=== PATIENT | female | born 1935 | race Two or more races ===

== ENCOUNTER → 2016-06-10 | Outpatient (REF) | payer MEDICARE ==
[2016-06-10 17:36] LABS: BASO % 0.3 % (0.0-1.0); EOS # 0.1 K/mm3 (0.0-0.50); EOS % 1.2 % (0.0-3.0); LARGE UNSTAINED CELL # 0.1 K/mm3 (0.0-0.4); LYMPH # 1.2 K/mm3 (1.5-4.5); LYMPH % 17.8 % (24.0-44.0); MEAN CORPUSCULAR HEMOGLOBIN 27.9 pg (27.0-33.0); MEAN CORPUSCULAR HGB CONC 31.6 g/dl (32.0-36.5); MEAN CORPUSCULAR VOLUME 88.2 fl (80.0-96.0); MONO # 0.6 K/mm3 (0.0-0.8); MONO % 8.4 % (0.0-5.0); NEUTROPHILS # 4.6 K/mm3 (1.8-7.7); NEUTROPHILS % 70.3 % (36.0-66.0); PLATELET COUNT, AUTOMATED 221 k/mm3 (150-450); RED CELL DISTRIBUTION WIDTH 14.3 % (11.5-14.5); WHITE BLOOD COUNT 6.6 K/mm3 (4.0-10.0)
[2016-06-10 17:50] LABS: ALBUMIN 3.4 GM/DL (3.2-5.2); ALBUMIN/GLOBULIN RATIO 0.85 (1.00-1.93); ALKALINE PHOSPHATASE 84 U/L (45-117); ALT/SGPT 25 U/L (12-78); AMYLASE 36 U/L (25-115); ANION GAP 8 MEQ/L (8-16); AST/SGOT 22 U/L (15-37); BILIRUBIN,TOTAL 0.5 MG/DL (0.2-1.0); BLOOD UREA NITROGEN 17 MG/DL (7-18); CALCIUM LEVEL 9.5 MG/DL (8.8-10.2); CARBON DIOXIDE LEVEL 31 MEQ/L (21-32); CHLORIDE LEVEL 97 MEQ/L (98-107); CREATININE FOR GFR 0.88 MG/DL (0.55-1.02); GLOMERULAR FILTRATION RATE > 60.0 (>39); GLUCOSE, FASTING 151 MG/DL (83-110); POTASSIUM SERUM 4.3 MEQ/L (3.5-5.1); SODIUM LEVEL 136 MEQ/L (136-145); TOTAL PROTEIN 7.4 GM/DL (6.4-8.2)
== END ==
LOC: M SFHCCLAY 13:33
PROVIDERS: ATTEND Family Medicine
DX: R10.31 Right lower quadrant pain (principal)
CPT/HCPCS: 80053; 82150; 83690; 85025; G0463

== ENCOUNTER → 2016-08-05 | Outpatient (REF) | payer MEDICARE ==
[2016-08-05 18:51] LABS: ALBUMIN 3.4 GM/DL (3.2-5.2); ALBUMIN/GLOBULIN RATIO 0.87 (1.00-1.93); ALKALINE PHOSPHATASE 72 U/L (45-117); ALT/SGPT 36 U/L (12-78); ANION GAP 9 MEQ/L (8-16); AST/SGOT 23 U/L (15-37); BILIRUBIN,TOTAL 0.4 MG/DL (0.2-1.0); BLOOD UREA NITROGEN 16 MG/DL (7-18); CALCIUM LEVEL 9.2 MG/DL (8.8-10.2); CARBON DIOXIDE LEVEL 29 MEQ/L (21-32); CHLORIDE LEVEL 100 MEQ/L (98-107); CHOLESTEROL LEVEL 112 MG/DL (<200); CREATININE FOR GFR 0.96 MG/DL (0.55-1.02); GLOMERULAR FILTRATION RATE 59.8 (>39); GLUCOSE, FASTING 272 MG/DL (83-110); POTASSIUM SERUM 3.7 MEQ/L (3.5-5.1); SODIUM LEVEL 138 MEQ/L (136-145); TOTAL PROTEIN 7.3 GM/DL (6.4-8.2); TRIGLYCERIDES LEVEL 249 MG/DL (<150)
[2016-08-05 19:06] LABS: BASO % 0.4 % (0.0-1.0); EOS # 0.3 K/mm3 (0.0-0.50); LARGE UNSTAINED CELL # 0.1 K/mm3 (0.0-0.4); LARGE UNSTAINED CELL % 1.3 % (0.0-4.0); LYMPH # 1.1 K/mm3 (1.5-4.5); LYMPH % 18.1 % (24.0-44.0); MEAN CORPUSCULAR HEMOGLOBIN 28.8 pg (27.0-33.0); MEAN CORPUSCULAR HGB CONC 32.9 g/dl (32.0-36.5); MEAN CORPUSCULAR VOLUME 87.5 fl (80.0-96.0); MONO # 0.5 K/mm3 (0.0-0.8); MONO % 9.1 % (0.0-5.0); NEUTROPHILS # 3.6 K/mm3 (1.8-7.7); NEUTROPHILS % 66.1 % (36.0-66.0); PLATELET COUNT, AUTOMATED 164 k/mm3 (150-450); RED CELL DISTRIBUTION WIDTH 15.1 % (11.5-14.5); WHITE BLOOD COUNT 5.5 K/mm3 (4.0-10.0)
== END ==
LOC: M SFHCCLAY 09:52
PROVIDERS: ATTEND Family Medicine
DX: D50.9 Iron deficiency anemia, unspecified (principal); E11.29 Type 2 diabetes mellitus with other diabetic kidney complication; R93.2 Abnormal findings on diagnostic imaging of liver and biliary tract; K74.60 Unspecified cirrhosis of liver; E78.5 Hyperlipidemia, unspecified; E03.9 Hypothyroidism, unspecified; Z79.899 Other long term (current) drug therapy

== ENCOUNTER → 2016-12-24 | Outpatient (REF) | payer MEDICARE | LOC: M SFHCCLAY 08:28 | PROVIDERS: ATTEND Family Medicine | DX: E11.29 Type 2 diabetes mellitus with other diabetic kidney complication (principal); E03.9 Hypothyroidism, unspecified ==

== ENCOUNTER → 2017-03-23 | Outpatient (REF) | payer MEDICARE ==
[2017-03-23 19:14] LABS: CALCIUM LEVEL 9.1 MG/DL (8.8-10.2); CREATININE FOR GFR 0.98 MG/DL (0.55-1.02); GLOMERULAR FILTRATION RATE 58.3 (>39); POTASSIUM SERUM 4.1 MEQ/L (3.5-5.1)
== END ==
LOC: M SFHCCLAY 09:51
PROVIDERS: ATTEND Family Medicine
DX: E11.29 Type 2 diabetes mellitus with other diabetic kidney complication (principal); Z23 Encounter for immunization
CPT/HCPCS: 80048; 83036; 90662; G0008; G0463

== ENCOUNTER → 2017-06-04 | Outpatient (CLI) | payer MEDICARE | LOC: M CLY 11:43 | DX: J18.1 Lobar pneumonia, unspecified organism (principal) | CPT/HCPCS: 71046; G0463 ==

== ENCOUNTER → 2017-06-25 | Outpatient (REF) | payer MEDICARE ==
[2017-06-25 12:04] LABS: ALBUMIN 3.6 GM/DL (3.2-5.2); ALBUMIN/GLOBULIN RATIO 0.92 (1.00-1.93); ALKALINE PHOSPHATASE 53 U/L (45-117); ALT/SGPT 28 U/L (12-78); ANION GAP 7 MEQ/L (8-16); AST/SGOT 23 U/L (7-37); BILIRUBIN,TOTAL 0.4 MG/DL (0.2-1.0); BLOOD UREA NITROGEN 14 MG/DL (7-18); CALCIUM LEVEL 9.3 MG/DL (8.8-10.2); CARBON DIOXIDE LEVEL 32 MEQ/L (21-32); CHLORIDE LEVEL 95 MEQ/L (98-107); CHOLESTEROL LEVEL 89 MG/DL (<200); CHOLESTEROL RISK RATIO 2.069 (<5); CREATININE FOR GFR 0.78 MG/DL (0.55-1.30); GLOMERULAR FILTRATION RATE > 60.0 (>39); GLUCOSE, FASTING 123 MG/DL (70-100); HDL CHOLESTEROL 43 MG/DL (>40); LDL CHOLESTEROL 14.2 MG/DL (<100); NON-HDL-C 46 MG/DL; POTASSIUM SERUM 4.2 MEQ/L (3.5-5.1); SODIUM LEVEL 134 MEQ/L (136-145); TOTAL PROTEIN 7.5 GM/DL (6.4-8.2); TRIGLYCERIDES LEVEL 159 MG/DL (<150)
== END ==
LOC: M SFHCCLAY 08:49
DX: E11.29 Type 2 diabetes mellitus with other diabetic kidney complication (principal); E03.9 Hypothyroidism, unspecified
CPT/HCPCS: 84443

== ENCOUNTER → 2017-10-06 | Outpatient (REF) | payer MEDICARE ==
[2017-10-06 11:43] LABS: ESTIMATED AVERAGE GLUCOSE 206 MG/DL (60-110); HEMOGLOBIN A1c 8.8 %
[2017-10-06 11:50] LABS: ALBUMIN 3.3 GM/DL (3.2-5.2); ALBUMIN/GLOBULIN RATIO 0.79 (1.00-1.93); ALKALINE PHOSPHATASE 66 U/L (45-117); ALT/SGPT 27 U/L (12-78); ANION GAP 6 MEQ/L (8-16); AST/SGOT 28 U/L (7-37); BILIRUBIN,TOTAL 0.4 MG/DL (0.2-1.0); BLOOD UREA NITROGEN 17 MG/DL (7-18); CALCIUM LEVEL 9.1 MG/DL (8.8-10.2); CARBON DIOXIDE LEVEL 31 MEQ/L (21-32); CHLORIDE LEVEL 99 MEQ/L (98-107); CREATININE FOR GFR 1.08 MG/DL (0.55-1.30); GLUCOSE, FASTING 303 MG/DL (70-100); POTASSIUM SERUM 4.2 MEQ/L (3.5-5.1); SODIUM LEVEL 136 MEQ/L (136-145); TOTAL PROTEIN 7.5 GM/DL (6.4-8.2)
== END ==
LOC: M SFHCCLAY 07:43
DX: E11.29 Type 2 diabetes mellitus with other diabetic kidney complication (principal)
CPT/HCPCS: 80053

== ENCOUNTER → 2018-05-24 | Outpatient (REF) | payer MEDICARE ==
[2018-05-24 17:10] LABS: BASO % 0.3 % (0.0-1.0); EOS # 0.1 10^3/uL (0.0-0.50); EOS % 2.2 % (0.0-3.0); HEMATOCRIT 35.3 % (36.0-47.0); HEMOGLOBIN 11.2 g/dl (12.0-15.5); LYMPH # 1.2 10^3/uL (1.5-4.5); LYMPH % 19.6 % (24.0-44.0); MEAN CORPUSCULAR HEMOGLOBIN 27.2 pg (27.0-33.0); MEAN CORPUSCULAR HGB CONC 31.7 g/dl (32.0-36.5); MEAN CORPUSCULAR VOLUME 85.7 fl (80.0-96.0); MONO # 0.5 10^3/uL (0.0-0.8); MONO % 8.7 % (0.0-5.0); NEUTROPHILS # 4.1 10^3/uL (1.8-7.7); NEUTROPHILS % 68.9 % (36.0-66.0); PLATELET COUNT, AUTOMATED 184 10^3/uL (150-450); RED BLOOD COUNT 4.12 10^6/uL (4.00-5.40)
[2018-05-24 17:13] LABS: ALBUMIN 3.2 GM/DL (3.2-5.2); BILIRUBIN,TOTAL 0.4 MG/DL (0.2-1.0); CALCIUM LEVEL 9.1 MG/DL (8.8-10.2); CHOLESTEROL RISK RATIO 3.051 (<5); CREATININE FOR GFR 0.99 MG/DL (0.55-1.30); GLOMERULAR FILTRATION RATE 57.5 (>32); THYROID STIMULATING HORMONE 4.44 uIU/ML (0.358-3.740); TOTAL PROTEIN 7.6 GM/DL (6.4-8.2)
[2018-05-24 17:17] LABS: HEMOGLOBIN A1c 9.2 %
== END ==
LOC: M SFHCCLAY 09:35
PROVIDERS: ATTEND Family Medicine
DX: E11.29 Type 2 diabetes mellitus with other diabetic kidney complication (principal); E03.9 Hypothyroidism, unspecified; D50.9 Iron deficiency anemia, unspecified
CPT/HCPCS: 80053; 80061; 83036; 84443; 85025; G0463

== ENCOUNTER → 2018-09-17 | Outpatient (REF) | payer MEDICARE ==
[2018-09-17 18:27] LABS: ALBUMIN 3.4 GM/DL (3.2-5.2); BILIRUBIN,TOTAL 0.4 MG/DL (0.2-1.0); CALCIUM LEVEL 9.5 MG/DL (8.8-10.2); CREATININE FOR GFR 0.96 MG/DL (0.55-1.30); GLOMERULAR FILTRATION RATE 59.4 (>32); POTASSIUM SERUM 3.9 MEQ/L (3.5-5.1)
[2018-09-17 18:59] LABS: HEMOGLOBIN A1c 8.3 %
== END ==
LOC: M SFHCCLAY 10:45
PROVIDERS: ATTEND Family Medicine
DX: E11.29 Type 2 diabetes mellitus with other diabetic kidney complication (principal)
CPT/HCPCS: 80053; 83036; G0463

== ENCOUNTER → 2019-01-17 | Outpatient (REF) | payer MEDICARE ==
[2019-01-17 17:03] LABS: ALBUMIN 3.4 GM/DL (3.2-5.2); BILIRUBIN,TOTAL 0.6 MG/DL (0.2-1.0); CALCIUM LEVEL 9.4 MG/DL (8.8-10.2); CREATININE FOR GFR 0.97 MG/DL (0.55-1.30); GLOMERULAR FILTRATION RATE 58.7 (>32); POTASSIUM SERUM 3.9 MEQ/L (3.5-5.1); THYROID STIMULATING HORMONE 2.99 uIU/ML (0.358-3.740); TOTAL PROTEIN 7.4 GM/DL (6.4-8.2)
[2019-01-17 18:10] LABS: HEMOGLOBIN A1c 7.7 %
== END ==
LOC: M SFHCCLAY 10:43
PROVIDERS: ATTEND Family Medicine
DX: E11.29 Type 2 diabetes mellitus with other diabetic kidney complication (principal); E03.9 Hypothyroidism, unspecified
CPT/HCPCS: 80053; 83036; 84443; G0463

== ENCOUNTER → 2019-06-20 | Outpatient (REF) | payer MEDICARE ==
[2019-06-20 16:35] LABS: BASO % 0.4 % (0.0-1.0); EOS # 0.1 10^3/uL (0.0-0.5); EOS % 2.3 % (0.0-3.0); HEMATOCRIT 34.4 % (36.0-47.0); HEMOGLOBIN 10.9 g/dl (12.0-15.5); LYMPH # 0.9 10^3/uL (1.5-5.0); LYMPH % 16.6 % (24.0-44.0); MEAN CORPUSCULAR HEMOGLOBIN 27.8 pg (27.0-33.0); MEAN CORPUSCULAR HGB CONC 31.7 g/dl (32.0-36.5); MEAN CORPUSCULAR VOLUME 87.8 fl (80.0-96.0); MONO # 0.6 10^3/uL (0.0-0.8); NEUTROPHILS # 3.6 10^3/uL (1.5-8.5); NEUTROPHILS % 69.5 % (36.0-66.0); PLATELET COUNT, AUTOMATED 162 10^3/uL (150-450); RED BLOOD COUNT 3.92 10^6/uL (4.00-5.40); WHITE BLOOD COUNT 5.2 10^3/uL (4.0-10.0)
[2019-06-20 17:15] LABS: ALBUMIN 3.3 GM/DL (3.2-5.2); BILIRUBIN,TOTAL 0.4 MG/DL (0.2-1.0); CALCIUM LEVEL 9.2 MG/DL (8.8-10.2); CHOLESTEROL RISK RATIO 2.815 (<5); CREATININE FOR GFR 1.17 MG/DL (0.55-1.30); GLOMERULAR FILTRATION RATE 47.3 (>32); POTASSIUM SERUM 4.1 MEQ/L (3.5-5.1); THYROID STIMULATING HORMONE 2.78 uIU/ML (0.358-3.740); TOTAL PROTEIN 7.1 GM/DL (6.4-8.2)
== END ==
LOC: M SFHCCLAY 09:57
PROVIDERS: ATTEND Family Medicine
DX: E11.29 Type 2 diabetes mellitus with other diabetic kidney complication (principal); E03.9 Hypothyroidism, unspecified; E78.5 Hyperlipidemia, unspecified; D50.9 Iron deficiency anemia, unspecified
CPT/HCPCS: 80053; 80061; 83036; 83540; 84443; 85025; G0463

== ENCOUNTER → 2019-10-07 | Outpatient (REF) | payer MEDICARE ==
[2019-10-07 17:03] LABS: BASO % 0.3 % (0.0-1.0); EOS # 0.2 10^3/uL (0.0-0.5); EOS % 3.8 % (0.0-3.0); HEMOGLOBIN 11.1 g/dl (12.0-15.5); LYMPH # 1.5 10^3/uL (1.5-5.0); LYMPH % 25.2 % (24.0-44.0); MEAN CORPUSCULAR HEMOGLOBIN 27.7 pg (27.0-33.0); MEAN CORPUSCULAR HGB CONC 31.7 g/dl (32.0-36.5); MEAN CORPUSCULAR VOLUME 87.3 fl (80.0-96.0); MONO # 0.6 10^3/uL (0.0-0.8); MONO % 9.3 % (0.0-5.0); NEUTROPHILS # 3.7 10^3/uL (1.5-8.5); NEUTROPHILS % 61.1 % (36.0-66.0); PLATELET COUNT, AUTOMATED 161 10^3/uL (150-450); RED BLOOD COUNT 4.01 10^6/uL (4.00-5.40)
[2019-10-07 17:22] LABS: HEMOGLOBIN A1c 8.4 %
[2019-10-07 17:35] LABS: ALBUMIN 3.3 GM/DL (3.2-5.2); BILIRUBIN,TOTAL 0.6 MG/DL (0.2-1.0); CALCIUM LEVEL 9.2 MG/DL (8.8-10.2); CREATININE FOR GFR 1.09 MG/DL (0.55-1.30); GLOMERULAR FILTRATION RATE 51.2 (>32); POTASSIUM SERUM 3.9 MEQ/L (3.5-5.1); TOTAL PROTEIN 7.3 GM/DL (6.4-8.2)
== END ==
LOC: M SFHCCLAY 11:15
PROVIDERS: ATTEND Family Medicine
DX: E11.29 Type 2 diabetes mellitus with other diabetic kidney complication (principal); D50.9 Iron deficiency anemia, unspecified
CPT/HCPCS: 80053; 83036; 83540; 85025; G0463

== ENCOUNTER 2020-08-06 16:12 | Inpatient (IN) | payer MEDICARE ==
[~2020-08-06] VITALS: Ht 154.9 cm; Wt 82.7 kg
[2020-08-06 18:15] VITALS: BP 169/75
[2020-08-06] MEDS ORDERED: GLUCAGON INJ 1MG VIAL SC PRN (18:20)
[2020-08-06] MEDS ORDERED: GLUCOSE 4GM CHEW TABLET PO PRN (18:20)
[2020-08-06] MEDS ORDERED: DEXTROSE 50% 50 ML SYRINGE IV PRN (18:20)
[2020-08-06] MEDS ORDERED: LEVO150T7 PO (18:47)
[2020-08-06] MEDS ORDERED: LOSA100T50 PO (18:47)
[2020-08-06] MEDS ORDERED: GLIM4TAB5 PO (18:47)
[2020-08-06] MEDS ORDERED: CARV25TA PO (18:47)
[2020-08-06] MEDS ORDERED: TORS5TAB2 PO (18:47)
[2020-08-06] MEDS ORDERED: AMLO1TAB24 PO (18:47)
[2020-08-06] MEDS ORDERED: ASPI81CH10 PO (18:47)
[2020-08-06] MEDS ORDERED: METF-838 PO ×2 (18:47)
[2020-08-06] MEDS ORDERED: ALLO100T PO (18:47)
[2020-08-06] MEDS ORDERED: SIMV20TA22 PO (18:47)
[2020-08-06] MEDS ORDERED: SPIR-10 PO (18:47)
[2020-08-06 19:20] LABS: HEMOGLOBIN 9.1 g/dl (12.0-15.5); MEAN CORPUSCULAR HEMOGLOBIN 27.5 pg (27.0-33.0); MEAN CORPUSCULAR HGB CONC 32.5 g/dl (32.0-36.5); MEAN CORPUSCULAR VOLUME 84.6 fl (80.0-96.0); PLATELET COUNT, AUTOMATED 219 10^3/uL (150-450); RED BLOOD COUNT 3.31 10^6/uL (4.00-5.40); WHITE BLOOD COUNT 12.1 10^3/uL (4.0-10.0)
[2020-08-06 19:27] LABS: ALBUMIN 2.1 GM/DL (3.2-5.2); BILIRUBIN,TOTAL 2.8 MG/DL (0.2-1.0); CALCIUM LEVEL 8.7 MG/DL (8.8-10.2); CREATININE FOR GFR 1.21 MG/DL (0.55-1.30); GLOMERULAR FILTRATION RATE 45.4 (>32); TOTAL PROTEIN 6.1 GM/DL (6.4-8.2)
--- NOTE | 2020-08-06 19:45 | HPEPDOC ---
[facility] Medical History & Physical Date of Admission Aug 06, 2020 Date of Service: Aug 06, 2020 Primary Care Physician: Addison Kearns Attending Physician: JANIYA FRAZIER MD History and Physical TIME OF SERVICE: 950pm CHIEF COMPLAINT: weakness HISTORY OF PRESENT ILLNESS: This 84 yr old F had been having nausea and non bloody vomitus for about 7 days. These symptoms resolved, but her appetite has not improved, she feels like her abdomen is enlarged and full, despite usually having a good appetite. She has also been feeling weak, and has been having right mid 6/10 in severity non- radiating dull abdominal pain; she is not sure if the pain it is made worse by eating. She denies falling as a result of the weakness. She has been having diarrhea with 2 watery non-bloody bowel movements daily. She called an urgent care center to discuss her concerns and was told to go to the ER. She presented at [facility] where she was diagnosed with acute cholecystitis with stone or mass in the gallbladder fundus, transaminitis, and ALEXANDRA and UTI; the case was d/w and she was transferred here for a higher level of care. REVIEW OF SYSTEMS: 12-point review of systems negative except as listed in HPI PAST MEDICAL/ SURGICAL HISTORY: Hx of GIST CAD w stents x2 / DLP NIDDM w retinopathy and neuropathy Chronic HTN Gout Sigmoid diverticulosis Fatty liver Hypothyroidism Anemia Dextroconvex scoliosis Left hip prosthesis / Debility uses a walking aide Hysterectomy D&C SOCIAL HISTORY: She is a former smoker, doesnt drink or use recreational drugs, is single & doesnt have any children. FAMILY HISTORY: Parkinsons, DM, HTN ALLERGIES: Please see below. HOME MEDICATIONS: Please see below. PHYSICAL EXAMINATION: Vital Signs Date Time Temp Pulse Resp B/P (MAP) Pulse Ox O2 Delivery O2 Flow Rate FiO2 08/06/20 18:15 99.5 91 18 169/75 (106) 95 Room Air GENERAL APPEARANCE: well nourished and developed / NAD HEENT: EOMI / no scleral icterus CARDIOVASCULAR: RRR/NMRG / no LE edema LUNGS: CTAB on RA ABDOMEN: distended / tympanic/ hypoactive BS / soft / tender w palpation on the right / MUSCULOSKELETAL: ROMIx 4 INTEGUMENT: not flushed, pale, jaundice or diaphoretic NEUROLOGICAL: CN 2-12 grossly intact / speech not dysarthric PSYCHIATRIC: A&Ox / able to understand and follow all commands LABORATORY DATA: 08/06/20 18:49 Nucleated Red Blood Cells % (auto) 0.0, Anion Gap 5L, Glomerular Filtration Rate 45.4, Lactic Acid Level 1.1, Calcium Level 8.7L, Total Bilirubin 2.8H, Aspartate Amino Transf (AST/SGOT) 261H, Alanine Aminotransferase (ALT/SGPT) 194H, Alkaline Phosphatase 375H, Total Protein 6.1L, Albumin 2.1L, Albumin/Globulin Ratio 0.5L IMAGING: From [facility] 1 view xray showed bibasilar atelectasis From [facility] showed no free air, acute cholecystitis with stone vs mucosal mass in the gallbladder fundus, severe fatty infiltration of the liver. MICROBIOLOGY: UCx pending ASSESSMENT: Ms. Booker is an 84 yr old w a hx of GIST, CAD, NIDDM, HTN, Gout, Fatty liver, hypothyroidism, anemia, & debility who presented to [facility] w c/o abdominal distention, R sided abdominal pain, watery bowel movements, poor appetite, and weakness and was diagnosed with acute cholecystitis with stone or mass in the gallbladder fundus, transaminitis, and ALEXANDRA and UTI & transferred here for a higher level of care. PLAN: 1 Abdominal pain / fullness / anorexia possibly 2/2 acute cholecystis vs other cause TBD She may also have choledocholithiasis or a fundal mass Plan: CLD pending consult w / Vonda / f/u MRCP 2. Transaminitis In the 100s therefore may be due to fatty liver +/- cholecystitis Plan: trend LFTs & f/u MRCP 3 Loose stools w anemia Plan: f/u Iron studies and stool hem occult 4 UTI ? Plan: c/w abx / day time team may consider calling [facility] for UCx results 5 ALEXANDRA resolved She has CKD w nephropathy at baseline 6 CAD w stents x2 / DLP Plan: Aspirin, Carvedilol 7 NIDDM w retinopathy and neuropathy Plan: diabetic diet / f/u accuchecks / / hypoglycemia protocol / sliding scale insulin / hold oral anti-glycemic / f/u A1C (target A1C is 7.1 to 8.5% bc she is frail, elderly & has a decreased life expectancy) 8 Chronic HTN Plan: Amlodipine, Losartan, Spironolactone, Torsemide 9 Gout Plan: Allopurinol 11 Hypothyroidism Plan: Levothyroxine 12 Weakness She has a Left hip prosthesis / Debility uses a walking aide Plan: day time team may consider PT for early mobilization & to prevent deconditioning DVT px w SCDs Dispo: home after at least 2 midnights stay Home Medications Scheduled Allopurinol (Allopurinol) 100 Mg Tablet, 100 MG PO DAILY Amlodipine Besylate (Amlodipine Besylate) 5 Mg Tablet, 5 MG PO DAILY Aspirin (Aspirin) 81 Mg Tab.chew, 81 MG PO DAILY Carvedilol (Carvedilol) 25 Mg Tablet, 25 MG PO BID Glimepiride (Glimepiride) 4 Mg Tablet, 4 MG PO BID Levothyroxine Sodium (Levothyroxine Sodium) 150 Mcg Tablet, 150 MCG PO DAILY Losartan Potassium (Losartan Potassium) 100 Mg Tablet, 100 MG PO DAILY Metformin HCl (Metformin HCl ER) 500 Mg Tab.er.24h, 1,000 MG PO DAILY Metformin HCl (Metformin HCl ER) 500 Mg Tab.er.24h, 500 MG PO QHS Simvastatin (Simvastatin) 20 Mg Tablet, 20 MG PO QHS Spironolactone (Spironolactone) 25 Mg Tablet, 12.5 MG PO DAILY Torsemide (Torsemide) 5 Mg Tablet, 5 MG PO DAILY Allergies Coded Allergies: codeine (Verified Adverse Reaction, Mild, CONFUSION, 08/06/20) A-FIB/CHADSVASC A-FIB History Current/History of A-Fib/PAF?: No Current PO Anticoag Therapy: No JANIYA FRAZIER MD Aug 06, 2020 19:44
[2020-08-06 19:53] LABS: INR 1.5; PROTHROMBIN TIME 18.4 SECONDS (12.5-14.3)
[2020-08-06] MEDS: HumaLOG INSULIN (NovoLOG) PER UNIT SC SCH (21:00)
[2020-08-06 22:00] VITALS: BP 143/62
[2020-08-06] MEDS: PIPERACILLIN/TAZOBACTAM SOD 2.25 GM in D5W MINI-BAG PLUS 50 ML IV SCH (22:05)
[2020-08-06] MEDS ORDERED: ONDANSETRON 4 MG TAB PO PRN (22:45)
[2020-08-06] MEDS ORDERED: PILL CUTTER 1 EACH XX PRN (22:50)
[2020-08-06] MEDS: SIMVASTATIN 20 MG TAB PO SCH (23:57)
[2020-08-06] MEDS: CARVedilol 12.5 MG TAB PO SCH (23:57)
[2020-08-07] MEDS: PIPERACILLIN/TAZOBACTAM SOD 2.25 GM in D5W MINI-BAG PLUS 50 ML IV SCH ×4 (03:53→20:47)
[2020-08-07] MEDS: LEVOTHYROXINE 150MCG TABLET (0.15MG) PO SCH (05:43)
[2020-08-07 06:00] VITALS: BP 121/68
[2020-08-07 07:16] LABS: HEMATOCRIT 24.7 % (36.0-47.0); MEAN CORPUSCULAR HEMOGLOBIN 27.5 pg (27.0-33.0); MEAN CORPUSCULAR HGB CONC 32.4 g/dl (32.0-36.5); MEAN CORPUSCULAR VOLUME 84.9 fl (80.0-96.0); PLATELET COUNT, AUTOMATED 203 10^3/uL (150-450); RED BLOOD COUNT 2.91 10^6/uL (4.00-5.40); WHITE BLOOD COUNT 8.6 10^3/uL (4.0-10.0)
[2020-08-07 07:46] LABS: ALBUMIN 1.8 GM/DL (3.2-5.2); BILIRUBIN,TOTAL 2.7 MG/DL (0.2-1.0); CALCIUM LEVEL 8.7 MG/DL (8.8-10.2); CREATININE FOR GFR 1.28 MG/DL (0.55-1.30); GLOMERULAR FILTRATION RATE 42.5 (>32); MAGNESIUM LEVEL 1.8 MG/DL (1.8-2.4); POTASSIUM SERUM 3.9 MEQ/L (3.5-5.1); TOTAL PROTEIN 5.4 GM/DL (6.4-8.2)
[2020-08-07 07:47] LABS: PERCENT SATURATION 8.3 % (13.2-45.0)
[2020-08-07] MEDS: SPIRONOLACTONE 12.5MG PER 1/2 TABLET PO SCH (08:19)
[2020-08-07] MEDS: HumaLOG INSULIN (NovoLOG) PER UNIT SC SCH ×4 (08:19→20:48)
[2020-08-07] MEDS: amLODIPine 5 MG TAB PO SCH (08:20)
[2020-08-07] MEDS: allopurinoL 100 MG TAB PO SCH (08:20)
[2020-08-07] MEDS: TORSEMIDE 10 MG TABLET PO SCH (08:20)
[2020-08-07] MEDS: CARVedilol 12.5 MG TAB PO SCH ×2 (08:21→20:47)
[2020-08-07] MEDS: LOSARTAN 50MG TABLET PO SCH (08:21)
[2020-08-07] MEDS ORDERED: ASPIRIN 81 MG CHEW TABLET PO SCH (09:00)
[2020-08-07 09:08] LABS: HEMOGLOBIN A1c 8.8 %
--- NOTE | 2020-08-07 10:54 | IPN ---
PROGRESS NOTE DATE: 08/07/2020 SUBJECTIVE: Patient is seen and examined at the bedside. Chart has been reviewed. She denies any fever or chills overnight. No nausea or vomiting. She says her pain is much better today. She c/o epigastric and periumbilical pain, right upper quadrant, radiating to the back. Slight icterus, no jaundice. No diarrhea or constipation. OBJECTIVE: PHYSICAL EXAMINATION: Vital signs: Temperature 98.2, pulse 83, respiratory rate 17, blood pressure 121/68, 95% on room air. Generally: Patient is awake, alert, oriented to person, place, and time, answering questions appropriately. Slightly icteric, no jaundice. Lungs: Clear to auscultation. No wheezing, rales, or rhonchi. Heart: S1, S2, sinus rhythm. No murmurs, rubs, or gallops. Abdomen: Distended, positive bowel sounds times four quadrants, obese, tender in palpation right upper quadrant and epigastric area, tympanitic. Extremities: No cyanosis or clubbing. LABORATORY DATA: White count 8.6, hemoglobin 8, hematocrit 24, platelet count 203, sodium 137, potassium 3.9, chloride 104, bicarbonate 26, BUN 40, creatinine 1.28, glucose 120, iron of 13, TIBC 156, bilirubin 2.7, AST 136, ALT 141, alkaline phosphatase 348 ASSESSMENT AND PLAN: 84-year-old female with history of gastrointestinal stromal tumor (GIST), coronary artery disease (CAD), stent times two, dyslipidemia, non-insulin dependent diabetes with neuropathy and retinopathy, hypertension, gout, sigmoid diverticulosis, fatty liver, hypothyroidism, chronic anemia, left hip prosthesis with debility, walking with a walking aid, hysterectomy and dilatation and curettage (D and C), presented to the emergency room with complaints of weakness and abdominal pain in the right epigastric area, diarrhea, two bowel movements. Patient was found to have gallstones in the gallbladder fundus with acute cholecystitis, found to have acute kidney injury and a urinary tract infection (UTI), transferred to [facility] for higher level of care. IMPRESSION: 1. Acute cholecystitis. Rule out choledocholithiasis with elevated bilirubin levels. Patient is to have an MRCP. Currently on broad-spectrum IV Zosyn. General surgery consulted. If patient has choledocholithiasis will need an ERCP and a gastrointestinal (GI) consult. 2. Anemia of chronic disease. No acute red blood cell (RBC) needs. Does not have symptomatic anemia and has no overt gastrointestinal (GI) bleed. 3. Acute kidney injury with chronic kidney disease stage III with nephropathy, at baseline creatinine. 4. History of coronary artery disease (CAD), stents, on Coreg. Will hold the patient's aspirin for now for possible intervention either laparoscopic cholecystectomy or ERCP with sphincterotomy or possible stent placement depending on MRCP results. 5. Hypothyroidism, on chronic Synthroid. 6. Dyslipidemia, on chronic statin. MTDD
--- NOTE | 2020-08-07 13:28 | REP ---
INDICATION: transamintis. COMPARISON: Comparison CT study of the abdomen December 02, 2010.. TECHNIQUE: MRCP protocol. Coronal and axial T2 weighted scans are obtained. MRCP acquisition is acquired and maximum intensity projection images are generated. These are viewed in rotational format. Source coronal images are reviewed. FINDINGS: T2 weighted scans demonstrate a Azeem's lobe configuration to the liver. The liver is not felt to be enlarged. Spleen is not enlarged. The gallbladder however is dilated and quite thick walled consistent with cholecystitis. The intrahepatic bile ducts are not dilated. There is a 1.1 cm cyst in the pancreatic head which is anterior to the convergence of the common bile duct and the main pancreatic duct. The main pancreatic duct is unremarkable. The source coronal images show a small rounded load signal intensity filling defect in the lumen of the common bile duct approximately 2.6 cm above the ampulla. This filling defect measures 0.3 cm and may be a choledocholithiasis. No common bile duct stricture is seen. No pancreatic mass is observed. There appear to be 2 small cortical cysts of the left kidney and there is a distal duodenal diverticulum. There is 1 small sub cm cyst in the right kidney. IMPRESSION: 1. Dilated gallbladder with a irregularly thickened wall consistent with cholecystitis, chronic versus acute. 2. No biliary ductal dilation is seen. 3. There is a 3 mm filling defect in the common bile duct suggestive of choledocholithiasis. 4. There is a 1.1 cm cyst in the head of the pancreas anterior to the pancreatic segment of the common bile duct and main pancreatic duct. 5. There are small bilateral cortical kidney cysts. <Electronically signed by Sohail Smith > 08/07/20 [id number]
[2020-08-07 14:00] VITALS: BP 105/47
--- NOTE | 2020-08-07 19:10 | CR.PDOC ---
General Surgery Consultation Date of Consultation 08/07/20 History and Physical CONSULT REPORT FOR: hospitalist service REASON FOR CONSULTATION: abdominal pain, cholecystitis HISTORY OF PRESENT ILLNESS: PAST MEDICAL HISTORY: 1. . PAST SURGICAL HISTORY: INCLUDES: 1. . PREVIOUS ANESTHESIA REACTIONS: ALLERGIES: Please see below. FAMILY HISTORY: . HOME MEDICATIONS: Please see below. REVIEW OF SYSTEMS: GENERAL: [Denies chills, reports weight gain, reports feeling febrile yesterday]. HEENT: [Denies blurred vision and double vision. Denies ear symptoms. Denies hoarseness]. NECK: Denies any neck pain]. CARDIOVASCULAR: [Denies chest pain and palpitations]. MUSCULOSKELETAL: [Denies arthralgias, back pain and thrombophlebitis]. SKIN: [Denies rash]. NEUROLOGIC: [Denies headache, stroke and transient ischemic attack]. PSYCHIATRIC: [Denies anxiety and depression]. ENDOCRINE: [Denies thyroid disease]. HEMATOLOGY/ONCOLOGY: [Denies bleeding or clotting disorder]. HEART: [Denies any chest pains, palpitations, paroxysmal dyspnea, orthopnea]. PULMONARY: [Denies chronic cough, dyspnea and wheezing]. GASTROINTESTINAL: [Denies rectal bleeding, family history of colon cancer, constipation, diarrhea, dysphagia, heartburn and jaundice]. GENITOURINARY: [Denies dysuria, frequency, hematuria and nocturia]. ENDOCRINE: [Denies polydipsia, polyphagia, polyuria, heat or cold intolerance]. INFECTIOUS: [Denies any recent upper respiratory tract infection, UTI, need for use of antibiotics]. NUTRITION: [Reports good appetite]. PHYSICAL EXAMINATION: VITALS SIGNS: Please see below. GENERAL APPEARANCE:[Patient seen, laying in bed, awake, alert, and oriented. Comfortable, in no acute distress]. SKIN: [Warm and moist]. HEENT: [Normocephalic, atraumatic. [place]et palpebral conjunctiva, anicteric sclerae. Lips and mucosa appear moist]. NECK: [Supple, no thyromegaly. No obvious jugular venous distention]. LUNGS: [Clear to auscultation bilaterally. No wheezing appreciated]. HEART: [No chest wall abnormalities. Regular rate and rhythm with no murmurs appreciated]. ABDOMEN: Abdomen is , soft, . [No hepatosplenomegaly. No umbilical or groin herniations, nondistended. No noticeable rebound or guarding. No grimacing with palpation. No rebound tenderness. No masses appreciated]. EXTREMITIES: [Extremities have no deformities. No edema identified] ANCILLARIES: . LABORATORY DATA: Please see below. IMAGING STUDIES: . IMPRESSION AND PLAN: . Vital Signs Vital Signs Date Time Temp Pulse Resp B/P (MAP) Pulse Ox O2 Delivery O2 Flow Rate FiO2 08/07/20 14:00 97.8 82 15 105/47 (66) 98 Room Air I&Os I&O- Last 24 Hours up to 6 AM 08/07/20 06:00 Intake Total 650 ml Balance 650 ml Laboratory Data Labs 24H Laboratory Tests 2 08/06/20 21:16: Bedside Glucose (Misc Panel) 140H 08/07/20 06:33: Nucleated Red Blood Cells % (auto) 0.0, Anion Gap 7L, Glomerular Filtration Rate 42.5, Estimated Mean Plasma Glucose 206H, Hemoglobin A1c 8.8, Calcium Level 8.7L, Magnesium Level 1.8, Iron Level 13L, Total Iron Binding Capacity 156L, Transferrin % Saturation 8.3L, Ferritin 297H, Total Bilirubin 2.7H, Aspartate Amino Transf (AST/SGOT) 136H, Alanine Aminotransferase (ALT/SGPT) 141H, Alkaline Phosphatase 348H, Total Protein 5.4L, Albumin 1.8L, Albumin/Globulin Ratio 0.5L, Vitamin B12 Level 218L, Folate 20.0 08/07/20 07:52: Bedside Glucose (Misc Panel) 149H 08/07/20 12:12: Bedside Glucose (Misc Panel) 153H 08/07/20 16:30: Bedside Glucose (Misc Panel) 127H CBC/BMP Laboratory Tests 08/07/20 06:33 Microbiology Microbiology 08/06/20 Blood Culture - Preliminary, Resulted No growth after 24 hours . All specim... Home Medications Scheduled Allopurinol (Allopurinol) 100 Mg Tablet, 100 MG PO DAILY, (Reported) Amlodipine Besylate (Amlodipine Besylate) 5 Mg Tablet, 5 MG PO DAILY, (Reported) Aspirin (Aspirin) 81 Mg Tab.chew, 81 MG PO DAILY, (Reported) Carvedilol (Carvedilol) 25 Mg Tablet, 25 MG PO BID, (Reported) Glimepiride (Glimepiride) 4 Mg Tablet, 4 MG PO BID, (Reported) Levothyroxine Sodium (Levothyroxine Sodium) 150 Mcg Tablet, 150 MCG PO DAILY, (Reported) Losartan Potassium (Losartan Potassium) 100 Mg Tablet, 100 MG PO DAILY, (Reported) Metformin HCl (Metformin HCl ER) 500 Mg Tab.er.24h, 1,000 MG PO DAILY, (Reported) Metformin HCl (Metformin HCl ER) 500 Mg Tab.er.24h, 500 MG PO QHS, (Reported) Simvastatin (Simvastatin) 20 Mg Tablet, 20 MG PO QHS, (Reported) Spironolactone (Spironolactone) 25 Mg Tablet, 12.5 MG PO DAILY, (Reported) Torsemide (Torsemide) 5 Mg Tablet, 5 MG PO DAILY, (Reported) Allergies Coded Allergies: codeine (Verified Adverse Reaction, Mild, CONFUSION, 08/06/20) LALO JACKSON MD Aug 07, 2020 19:10
[2020-08-07] MEDS: SIMVASTATIN 20 MG TAB PO SCH (20:47)
[2020-08-07 22:00] VITALS: BP 109/47
[2020-08-08] MEDS: PIPERACILLIN/TAZOBACTAM SOD 2.25 GM in D5W MINI-BAG PLUS 50 ML IV SCH ×4 (03:40→20:26)
[2020-08-08 06:00] VITALS: BP 116/47
[2020-08-08] MEDS: LEVOTHYROXINE 150MCG TABLET (0.15MG) PO SCH (06:05)
[2020-08-08 06:53] LABS: HEMATOCRIT 23.2 % (36.0-47.0); HEMOGLOBIN 7.5 g/dl (12.0-15.5); MEAN CORPUSCULAR HGB CONC 32.3 g/dl (32.0-36.5); MEAN CORPUSCULAR VOLUME 83.5 fl (80.0-96.0); PLATELET COUNT, AUTOMATED 219 10^3/uL (150-450); RED BLOOD COUNT 2.78 10^6/uL (4.00-5.40); WHITE BLOOD COUNT 11.5 10^3/uL (4.0-10.0)
[2020-08-08 07:22] LABS: ALBUMIN 1.7 GM/DL (3.2-5.2); BILIRUBIN,TOTAL 3.4 MG/DL (0.2-1.0); CALCIUM LEVEL 8.1 MG/DL (8.8-10.2); CREATININE FOR GFR 1.61 MG/DL (0.55-1.30); GLOMERULAR FILTRATION RATE 32.6 (>32); POTASSIUM SERUM 3.6 MEQ/L (3.5-5.1); TOTAL PROTEIN 5.2 GM/DL (6.4-8.2)
[2020-08-08] MEDS: HumaLOG INSULIN (NovoLOG) PER UNIT SC SCH ×4 (07:30→21:00)
[2020-08-08] MEDS: TORSEMIDE 10 MG TABLET PO SCH (09:46)
[2020-08-08] MEDS: SPIRONOLACTONE 12.5MG PER 1/2 TABLET PO SCH (09:46)
[2020-08-08] MEDS: CARVedilol 12.5 MG TAB PO SCH ×2 (09:47→20:29)
[2020-08-08] MEDS: LOSARTAN 50MG TABLET PO SCH (09:47)
[2020-08-08] MEDS: allopurinoL 100 MG TAB PO SCH (09:47)
[2020-08-08] MEDS: amLODIPine 5 MG TAB PO SCH (09:47)
[2020-08-08] MEDS ORDERED: NS 1,000 ML IV ONE (11:00)
--- NOTE | 2020-08-08 11:04 | IPNPDOC ---
Date Seen The patient was seen on 08/08/20. Progress Note please have manager community outreach call [employer] at [phone] to stat transcribed progress note by Dr. Littlejohn if needed urgently. VS, I&O, 24H, Fishbone Vital Signs/I&O Vital Signs Date Time Temp Pulse Resp B/P (MAP) Pulse Ox O2 Delivery O2 Flow Rate FiO2 08/08/20 09:47 116/52 08/08/20 09:47 68 08/08/20 06:00 97.8 20 95 Room Air I&O- Last 24 Hours up to 6 AM 08/08/20 06:00 Intake Total 1450 ml Output Total 600 ml Balance 850 ml Laboratory Data 24H LABS Laboratory Tests 2 08/07/20 12:12: Bedside Glucose (Misc Panel) 153H 08/07/20 16:30: Bedside Glucose (Misc Panel) 127H 08/07/20 20:26: Bedside Glucose (Misc Panel) 127H 08/08/20 06:35: Nucleated Red Blood Cells % (auto) 0.0, Anion Gap 9, Glomerular Filtration Rate 32.6, Calcium Level 8.1L, Total Bilirubin 3.4H, Aspartate Amino Transf (AST/SGOT) 131H, Alanine Aminotransferase (ALT/SGPT) 131H, Alkaline Phosphatase 417H, Total Protein 5.2L, Albumin 1.7L, Albumin/Globulin Ratio 0.5L CBC/BMP Laboratory Tests 08/08/20 06:35 Microbiology Microbiology 08/06/20 Blood Culture - Preliminary, Resulted No growth after 24 hours . All specim... WESTON LITTLEJOHN MD Aug 08, 2020 11:04
[2020-08-08 11:42] LABS: HEMATOCRIT 25.1 % (36.0-47.0); HEMOGLOBIN 8.2 g/dl (12.0-15.5)
--- NOTE | 2020-08-08 11:42 | IPN ---
PROGRESS NOTE DATE: 08/08/2020 SUBJECTIVE: The patient has no fevers or chills overnight. Complains though of feeling very thirsty with dry lips. No nausea or vomiting. No abdominal pain this morning. No other issues overnight. MRCP showed dilated common bile duct. The patient has been NPO for ERCP with Dr. Cowan this morning. No other issues overnight per nursing. OBJECTIVE: PHYSICAL EXAM: VITAL SIGNS: Temperature 97.8, pulse 68, respiratory rate 20, blood pressure 116/52, 95% on room air. GENERAL: Generally awake, alert and oriented to person, place, and time. Answering questions appropriately without conversational dyspnea. HEENT: The patient has no icterus or jaundice. LUNGS: Lungs are clear to auscultation, no wheezing, rales or rhonchi. Air entry is equal, no adventitious breath sounds. HEART: S1, S2 sinus rhythm. No murmurs, rubs or gallops. ABDOMEN: Abdomen is soft, distended, obese, positive bowel sounds times four quadrants. The patient has slight epigastric right upper quadrant tenderness. EXTREMITIES: no cyanosis, clubbing, or pitting edema. LABORATORY DATA: White count 11.5, hemoglobin 7.5, hematocrit 23, platelet count 219. Sodium 139, potassium 3.6, chloride 106, bicarb 24, BUN 43, creatinine 1.61, glucose of 115. T bilirubin 3.4, direct bilirubin 131, AST 131, ALT 131, alkaline phosphatase 417, albumin of 1.7. ASSESSMENT AND PLAN: This is an 84-year-old female with history of gastrointestinal stromal tumor, coronary artery disease, stent times two, non-insulin dependent diabetes with neuropathy, retinopathy, dyslipidemia, hypertension, gout, hypothyroidism, fatty liver, sigmoid diverticulosis, chronic anemia, left hip prosthesis, debility, walking with a walking aid, hysterectomy, D&C, presented to the Emergency Room with complaints of weakness, abdominal pain right upper quadrant and diarrhea. The patient was found to have acute cholecystitis and [id number]-[id number] kidney injury transferred to [facility] for higher level of care. 1. Acute cholecystitis/choledocholithiasis with possible acute cholangitis. 2. Anemia of chronic disease with possible hemodilutional component. No acute overt GI bleed. 3. Acute kidney injury on chronic kidney disease stage III with nephropathy most likely due to NPO status, dehydration, and cholecystitis. 4. History of coronary artery disease. 5. Hypothyroidism. 6. Dyslipidemia due to NPO status. The patient's torsemide and Spironolactone have been discontinued. She will be given normal saline while NPO x1 liter. 7. Hyperglycemic protocol. NPO status for ERCP today with Dr. Lamonte Cowan. Continue with IV antibiotics to be renally dosed by pharmacy. Laparoscopic cholecystectomy on Thursday per Dr. Ochoa. 8. Hemodilutional anemia. Recheck hemoglobin and hematocrit and transfuse as needed. 9. DVT prophylaxis with compression stockings. MTDD
[2020-08-08 14:00] VITALS: BP 114/55
[2020-08-08] MEDS ORDERED: ISOVUE-300 61% 50ML VIAL As Ordered ONE ×2 (16:12→16:13)
[2020-08-08] MEDS ORDERED: PHENYLephrine 500MCG 5ML (100MCG/ML) SYRINGE As Ordered ONE (16:29)
[2020-08-08] MEDS ORDERED: fentaNYL 100 MCG/2 ML INJECTION (J3010) As Ordered ONE (16:29)
[2020-08-08] MEDS ORDERED: ePHEDrine SULFATE 25 MG/5 ML(5MG/ML) SYRINGE As Ordered ONE (16:29)
[2020-08-08] MEDS ORDERED: propofoL 200 MG/20 ML VIAL As Ordered ONE (16:30)
[2020-08-08] MEDS ORDERED: LIDOCAINE 2% 100MG/5ML SDV (FOR ANES.) As Ordered ONE (16:30)
[2020-08-08] MEDS ORDERED: SUCCINYLCHOLINE 100 MG/5 ML SYRINGE (J0330) As Ordered ONE (16:31)
[2020-08-08] MEDS ORDERED: ROCURONIUM BROMIDE 50 MG/5 ML VIAL As Ordered ONE (16:53)
[2020-08-08] MEDS ORDERED: dexameTHASONE 4 MG/ML 1ML VIAL (J1100 PER 1MG) As Ordered ONE (17:10)
[2020-08-08] MEDS ORDERED: ONDANSETRON 4MG/2ML VIAL As Ordered ONE (17:10)
[2020-08-08] MEDS ORDERED: SUGAMMADEX SODIUM 500 MG/5 ML VIAL (BRIDION) As Ordered ONE (17:22)
--- NOTE | 2020-08-08 17:45 | ROOR ---
Patient Name: Stephanie Booker Procedure Date: 08/08/2020 4:19 PM Date of : 1935 Age: 84 Room: Main OR Gender: Female Note Status: Finalized Procedure: ERCP Indications: Evaluation and possible treatment of bile duct stone(s), Jaundice, Elevated liver enzymes Providers: Lamonte COWAN MD Referring MD: 2. Inpatient 2. Inpatient, CONY HUGHES DO Requesting Provider: Medicines: General Anesthesia Complications: No immediate complications. Procedure: Pre-Anesthesia Assessment: - The heart rate, respiratory rate, oxygen saturations, blood pressure, adequacy of pulmonary ventilation, and response to care were monitored throughout the procedure. The Duodenoscope was introduced through the mouth, and advanced to the duodenum and used to inject contrast into the bile duct. Findings: The turning sander tender film was normal. The esophagus was successfully intubated under direct vision. The scope was advanced to a normal major papilla in the descending duodenum without detailed examination of the pharynx, larynx and associated structures, and upper GI tract. The upper GI tract was grossly normal. A wire was passed into the biliary tree. The bile duct was then deeply cannulated over the guidewire. Contrast was injected. I personally interpreted the bile duct images. Ductal flow of contrast was adequate. Image quality was adequate. Contrast extended to the main bile duct. Opacification of the entire biliary tree except for the gallbladder was successful. The maximum diameter of the ducts was 8 mm. The lower third of the main bile duct contained a possible filling defect(s) related to minor sludge or a small mucosal fold. A 7 mm biliary sphincterotomy was made with a traction (standard) sphincterotome using ERBE electrocautery. There was no post-sphincterotomy bleeding. To discover objects, the biliary tree was swept with a 9 mm balloon starting at the bifurcation. Nothing was found. Impression: - A filling defect was suggested on the initial cholangiogram-sludge vs mucosal fold. - A biliary sphincterotomy was performed. - The biliary tree was swept and nothing was found. Recommendation: - I suspect the 3 mm stone seen on previous MRCP has already spontaneously passed. - Observe patient's clinical course. - Surgical consultation for consideration of cholecystectomy. Procedure Code(s): --- Professional --- 68403, Endoscopic retrograde cholangiopancreatography (ERCP); with sphincterotomy/papillotomy Diagnosis Code(s): --- Professional --- R93.2, Abnormal findings on diagnostic imaging of liver and biliary tract R74.8, Abnormal levels of other serum enzymes R17, Unspecified jaundice K80.50, Calculus of bile duct without cholangitis or cholecystitis without obstruction CPT copyright 2019 [employer]. All rights reserved. The codes documented in this report are preliminary and upon boat cleaner review may be revised to meet current compliance requirements. Lamonte Cowan MD Lamonte COWAN MD 08/08/2020 5:45:21 PM Electronically signed by Lamonte COWAN MD Number of Addenda: 0 Note Initiated On: 08/08/2020 4:19 PM Estimated Blood Loss: Estimated blood loss: none.
[2020-08-08] MEDS ORDERED: ONDANSETRON 4MG/2ML VIAL IV PRN (17:55)
[2020-08-08] MEDS ORDERED: fentaNYL 100 MCG/2 ML INJECTION (J3010) IV PRN (17:55)
[2020-08-08] MEDS ORDERED: oxyCODONE 5MG TAB PO PRN (17:55)
[2020-08-08] MEDS ORDERED: LR 1,000 ML IV SCH (17:55)
[2020-08-08 20:11] LABS: HEMATOCRIT 25.5 % (36.0-47.0); HEMOGLOBIN 8.4 g/dl (12.0-15.5)
[2020-08-08] MEDS: SIMVASTATIN 20 MG TAB PO SCH (20:27)
[2020-08-08 20:38] LABS: CALCIUM LEVEL 8.6 MG/DL (8.8-10.2); CREATININE FOR GFR 1.6 MG/DL (0.55-1.30); GLOMERULAR FILTRATION RATE 32.9 (>32); POTASSIUM SERUM 3.8 MEQ/L (3.5-5.1)
[2020-08-08 22:00] VITALS: BP 123/91
[2020-08-09] MEDS: PIPERACILLIN/TAZOBACTAM SOD 2.25 GM in D5W MINI-BAG PLUS 50 ML IV SCH ×4 (02:55→21:19)
[2020-08-09 06:00] VITALS: BP 101/63
[2020-08-09] MEDS: LEVOTHYROXINE 150MCG TABLET (0.15MG) PO SCH (06:35)
[2020-08-09 06:48] LABS: HEMATOCRIT 24.6 % (36.0-47.0); HEMOGLOBIN 7.9 g/dl (12.0-15.5); MEAN CORPUSCULAR HEMOGLOBIN 27.5 pg (27.0-33.0); MEAN CORPUSCULAR HGB CONC 32.1 g/dl (32.0-36.5); MEAN CORPUSCULAR VOLUME 85.7 fl (80.0-96.0); PLATELET COUNT, AUTOMATED 256 10^3/uL (150-450); RED BLOOD COUNT 2.87 10^6/uL (4.00-5.40); WHITE BLOOD COUNT 17.7 10^3/uL (4.0-10.0)
[2020-08-09 07:16] LABS: ALBUMIN 1.6 GM/DL (3.2-5.2); BILIRUBIN,TOTAL 2.5 MG/DL (0.2-1.0); CALCIUM LEVEL 8.1 MG/DL (8.8-10.2); CREATININE FOR GFR 1.63 MG/DL (0.55-1.30); GLOMERULAR FILTRATION RATE 32.2 (>32)
--- NOTE | 2020-08-09 08:27 | REP ---
INDICATION: CHOLECYSTITIS. COMPARISON: MRCP 08/07/2020 TECHNIQUE: Fifty-one images from C-arm fluoroscopy provided to Dr. Cowan of the gastroenterology division. FINDINGS: The duodenum scope projects with the probe into the common bile duct passage of wire through the common bile duct into the right hepatic duct. Contrast injection is performed with passage of the balloon catheter over the wire with multiple views with the balloon inflated and pulled through the duct obtained. Post procedure injection shows common duct without any filling defects and smooth contours. The visualized portions of intrahepatic ducts are unremarkable. IMPRESSION: Status post ERCP with balloon catheter placed into the common duct and pull-through, no filling defects seen after completion of the procedure on reinjection. Fluoroscopy time: 4 minutes 54.4 seconds. <Electronically signed by Chencho Witt > 08/09/20 [id number]
[2020-08-09] MEDS: CARVedilol 12.5 MG TAB PO SCH (09:00)
[2020-08-09] MEDS: LOSARTAN 50MG TABLET PO SCH (09:00)
[2020-08-09] MEDS: amLODIPine 5 MG TAB PO SCH (09:00)
[2020-08-09] MEDS: HumaLOG INSULIN (NovoLOG) PER UNIT SC SCH ×4 (09:44→20:27)
[2020-08-09] MEDS: allopurinoL 100 MG TAB PO SCH (09:46)
--- NOTE | 2020-08-09 10:24 | IPN ---
PROGRESS NOTE DATE: 08/09/2020 SUBJECTIVE: The patient complains of some nausea, increasing some abdominal distention this morning and a lot of gas. The patient is stable on her current liquid diet, eating jello at the bedside, no fever or chills overnight. Still on IV antibiotics. ERCP yesterday showing a filling defect suggested on initial cholangiogram, sludge versus mucosal fold, status post biliary sphincterotomy. When the biliary tree was swept nothing was found. Per aircraft motor mechanic, Dr. Cowan, there was probably a 3 mm stone previously seen on the MRCP which has been continually sweep passed. Recommendations are for cholecystectomy. OBJECTIVE: VITAL SIGNS: Temperature 98.2, pulse 75, respiratory rate 18, blood pressure 101/63, 95% on room air. GENERAL: Awake, alert and oriented x3, anicteric. No jaundice or icterus. Patient has no use of respiratory accessory muscles. She is able to speak in full sentences. NECK: No JVD, thyromegaly, or cervical lymphadenopathy. Moist mucous membranes. LUNGS: Clear to auscultation. No wheezing, rales or rhonchi. HEART: S1 and S2, sinus rhythm. ABDOMEN: Obese, soft, tender in right upper quadrant, epigastric region without rebound or guarding. Hyperactive bowel sounds. EXTREMITIES: No cyanosis or clubbing. LABORATORY DATA: White count 17.7, hemoglobin is 7.9, hematocrit is 24, platelet count is 256,000. Sodium is 140, potassium is 4, chloride 108, bicarbonate 22, BUN 46, creatinine 1.63, glucose of 174. Total bilirubin decreasing to 2.5 from previous 3.4. AST 54, ALT 86. Blood culture negative. ASSESSMENT AND PLAN: This is an 84-year-old female admitted on 08/06/2020 for acute cholecystitis, found to have CBD dilatation and a possible 3 mm stone on MRCP, underwent ERCP by Dr. Lamonte Cowan on 08/08/2020 with sweeping of the biliary tree and sphincterotomy but no stone was found with possible passing of the stone spontaneously and recommendations for laparoscopic cholecystectomy. Patient is still currently on IV Zosyn, started on 08/06/2020, pain is controlled, blood pressure is stable with Coreg and we are holding parameters. Patient will be NPO after midnight for a lap cholecystectomy tomorrow at 3 p.m. ACTIVE ISSUES: 1. Acute cholecystitis. 2. Choledocholithiasis. 3. Hypertension. 4. 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 5. History of CAD. 6. Hypothyroidism. 7. Dyslipidemia. 8. Possible hemodilutional anemia with no overt GI bleed. PLAN: Monitor patient's H and H and transfuse as needed. If hemoglobin is less than 8 on repeat H and H the patient is at baseline creatinine with improving liver function tests status post sphincterotomy with possible passage spontaneously of a 3 mm CBD stone, laparoscopic cholecystectomy in the morning, NPO after midnight and gentle use of IV fluids. MTDD
[2020-08-09 14:00] VITALS: BP 111/57
[2020-08-09] MEDS ORDERED: SIMETHICONE 80MG CHEW TAB PO ONE (16:00)
[2020-08-09] MEDS ORDERED: BISACODYL 5 MG TAB PO ONE (16:00)
--- NOTE | 2020-08-09 18:59 | REP ---
INDICATION: post ERCP nausea, bloating. COMPARISON: Chest 06/04/2017. TECHNIQUE: Supine and erect views of the abdomen, frontal view chest. FINDINGS: There is no evidence of free intraperitoneal air. There is contrast material in the distal colon. There is seen throughout the remainder of the GI tract in a nonspecific pattern. Few mildly dilated small bowel loops are seen on both sides of the abdomen. There are degenerative changes of the spine. The lungs show mild bibasilar fibro atelectatic changes. There appears to be a small right pleural effusion. The heart mediastinum are unchanged. IMPRESSION: No free air or obstruction. Nonspecific bowel gas pattern. Small right pleural effusion. <Electronically signed by Hai Lester > 08/09/20 [id number]
[2020-08-09 19:14] LABS: HEMATOCRIT 24.1 % (36.0-47.0); HEMOGLOBIN 7.9 g/dl (12.0-15.5)
[2020-08-09 19:32] LABS: AMYLASE 18 U/L (25-115); LIPASE 179 U/L (73-393)
[2020-08-09] MEDS ORDERED: CARVedilol 12.5 MG TAB PO SCH (21:00)
[2020-08-09] MEDS ORDERED: SIMETHICONE 80MG CHEW TAB PO PRN (21:00)
[2020-08-09] MEDS: SIMVASTATIN 20 MG TAB PO SCH (21:19)
[2020-08-09 22:00] VITALS: BP 120/50
[2020-08-10] VITALS (10 sets, daily range): BP systolic 118–156; BP diastolic 52–95
[2020-08-10] MEDS: PIPERACILLIN/TAZOBACTAM SOD 2.25 GM in D5W MINI-BAG PLUS 50 ML IV SCH ×4 (02:23→20:34)
[2020-08-10] MEDS ORDERED: BISACODYL 10 MG SUPP PR PRN (03:00)
[2020-08-10] MEDS ORDERED: FUROSEMIDE 20MG/2ML VIAL (J1940) IV ONE (05:20)
[2020-08-10] MEDS ORDERED: DEXTROSE 50% 50 ML SYRINGE IV PRN (05:25)
[2020-08-10 05:49] LABS: HEMATOCRIT 23.2 % (36.0-47.0); HEMOGLOBIN 7.7 g/dl (12.0-15.5); MEAN CORPUSCULAR HEMOGLOBIN 27.7 pg (27.0-33.0); MEAN CORPUSCULAR HGB CONC 33.2 g/dl (32.0-36.5); MEAN CORPUSCULAR VOLUME 83.5 fl (80.0-96.0); PLATELET COUNT, AUTOMATED 254 10^3/uL (150-450); RED BLOOD COUNT 2.78 10^6/uL (4.00-5.40); WHITE BLOOD COUNT 11.2 10^3/uL (4.0-10.0)
[2020-08-10] MEDS ORDERED: KCL 10MEQ IN D5/0.45NS 1000ML 1,000 ML IV SCH (06:00)
[2020-08-10 06:02] LABS: INR 1.46; PROTHROMBIN TIME 18.1 SECONDS (12.5-14.3)
[2020-08-10 06:14] LABS: ALBUMIN 1.7 GM/DL (3.2-5.2); BILIRUBIN,TOTAL 1.5 MG/DL (0.2-1.0); CALCIUM LEVEL 7.9 MG/DL (8.8-10.2); GLOMERULAR FILTRATION RATE 25.4 (>32); POTASSIUM SERUM 3.6 MEQ/L (3.5-5.1); TOTAL PROTEIN 5.2 GM/DL (6.4-8.2)
--- NOTE | 2020-08-10 07:27 | REP ---
INDICATION: pre-operative. pelural effuson. COMPARISON: Acute abdominal series including upright PA chest dated 08/09/2020. TECHNIQUE: Portable AP semi upright chest, 2 views. FINDINGS: There is effacement of the right costophrenic angle similar to the comparison study suggestive of a small right pleural effusion. There is a chronic curvilinear scar in the left costophrenic angle, unchanged from multiple prior studies. The lung danielle are otherwise clear. Cardiac size is normal. The leonardo, mediastinum, and skeletal structures are unremarkable. Patient is slightly rotated. IMPRESSION: Effacement of the right costophrenic angle similar to 08/09/2020 suggestive of a small right pleural effusion. Ultrasound or CT could be performed for confirmation. <Electronically signed by Hai Husain > 08/10/20 [id number]
[2020-08-10] MEDS ORDERED: ONDANSETRON 4MG/2ML VIAL As Ordered ONE (08:00)
[2020-08-10] MEDS ORDERED: dexameTHASONE 4 MG/ML 1ML VIAL (J1100 PER 1MG) As Ordered ONE (08:00)
[2020-08-10] MEDS ORDERED: ROCURONIUM BROMIDE 50 MG/5 ML VIAL As Ordered ONE (08:00)
[2020-08-10] MEDS ORDERED: KETOROLAC 60MG 2ML VIAL As Ordered ONE (08:00)
[2020-08-10] MEDS ORDERED: LIDOCAINE 2% 100MG/5ML SDV (FOR ANES.) As Ordered ONE (08:00)
[2020-08-10] MEDS ORDERED: propofoL 200 MG/20 ML VIAL As Ordered ONE (08:00)
[2020-08-10] MEDS ORDERED: ACETAMINOPHEN 1000MG 100ML IV BTL (OFIRMEV) (J0131 PER 10MG) As Ordered ONE (08:00)
[2020-08-10] MEDS ORDERED: SUGAMMADEX SODIUM 500 MG/5 ML VIAL (BRIDION) As Ordered ONE (08:00)
[2020-08-10] MEDS ORDERED: fentaNYL 100 MCG/2 ML INJECTION (J3010) As Ordered ONE (08:00)
[2020-08-10] MEDS ORDERED: MIDAZOLAM INJ 2MG/2ML VIAL (J2250 PER 1MG) As Ordered ONE (08:00)
[2020-08-10] MEDS ORDERED: MOM 30ML SUSPENSION UDC PO ONE (08:20)
[2020-08-10] MEDS ORDERED: LOSARTAN 50MG TABLET PO SCH (09:00)
[2020-08-10] MEDS ORDERED: LOSARTAN 25 MG TAB PO ONE (09:00)
--- NOTE | 2020-08-10 09:53 | REP ---
INDICATION: distended and checking for free air. COMPARISON: None. TECHNIQUE: Two views of the abdomen and pelvis. FINDINGS: Bowel gas pattern is nonspecific and oral contrast is identified within the descending and sigmoid colon. No evidence for obstruction or obvious bowel perforation. No organomegaly. Skeletal structures demonstrate degenerative changes and left hip replacement. IMPRESSION: Nonspecific bowel gas pattern. No definite evidence for obstruction or perforation. <Electronically signed by Jeffery Dean > 08/10/20 [id number]
[2020-08-10] MEDS ORDERED: SENOKOT S TAB PO ONE (10:00)
[2020-08-10] MEDS ORDERED: FUROSEMIDE 40MG/4ML VIAL (J1940) IV ONE (10:00)
--- NOTE | 2020-08-10 10:05 | IPNPDOC ---
Date Seen The patient was seen on 08/10/20. Progress Note Please have community outreach coordinator call HYP[employer] at [phone] for stat publishing systems analyst if note is needed urgently. Hospitalist progress note has been dictated Job number [id number] VS, I&O, 24H, Fishbone Vital Signs/I&O Vital Signs Date Time Temp Pulse Resp B/P (MAP) Pulse Ox O2 Delivery O2 Flow Rate FiO2 08/10/20 07:56 98.2 65 18 156/95 96 Room Air 08/08/20 17:42 100 I&O- Last 24 Hours up to 6 AM 08/10/20 06:00 Intake Total 1570 ml Balance 1570 ml Laboratory Data 24H LABS Laboratory Tests 2 08/09/20 12:29: Bedside Glucose (Misc Panel) 213H 08/09/20 16:55: Bedside Glucose (Misc Panel) 204H 08/09/20 18:49: Amylase Level 18L, Lipase 179 08/09/20 19:55: Bedside Glucose (Misc Panel) 165H 08/09/20 22:30: Coronavirus (COVID-19)(PCR) NEGATIVE 08/10/20 05:32: Nucleated Red Blood Cells % (auto) 0.0, Anion Gap 9, Glomerular Filtration Rate 25.4L, Calcium Level 7.9L, Total Bilirubin 1.5H, Aspartate Amino Transf (AST/SGOT) 34, Alanine Aminotransferase (ALT/SGPT) 71, Alkaline Phosphatase 322H, Total Protein 5.2L, Albumin 1.7L, Albumin/Globulin Ratio 0.5L 08/10/20 05:36: Prothrombin Time 18.1H, Prothromb Time International Ratio 1.46, Activated Partial Thromboplast Time 44.0H, Lactic Acid Level 0.5, LW-Dop-T-Type Natriuret ic Peptide 1910H CBC/BMP Laboratory Tests 08/09/20 18:49 08/10/20 05:32 Microbiology Microbiology 08/06/20 Blood Culture - Preliminary, Resulted No Growth after 72 hours. All specime... WESTON FARRIS MD Aug 10, 2020 10:04
[2020-08-10] MEDS: METOCLOPRAMIDE INJ 10MG/2ML VIAL (J2765 PER 1) IV SCH ×3 (10:48→20:34)
--- NOTE | 2020-08-10 11:29 | IPN ---
PROGRESS NOTE DATE: 08/10/2020 SUBJECTIVE: The patient denies any nausea or vomiting. No abdominal pain this morning. The patient has been n.p.o., anxious to try solid diet. Her laparoscopic cholecystectomy has been postponed due to increasing abdominal distention. No free air on abdominal film yesterday. The patient complains of a lot of abdominal gas pain, slightly better with Simethicone and a loose liquid stool yesterday. No other issues per nursing. Despite high blood pressure, she denies any chest pain, pressure, tightness, shortness of breath. The patient's creatinine has increased and she has been positive balance currently. Denies bright red blood per rectum, melena, black, tarry stools, hemoptysis or hematemesis, lightheadedness or dizziness. OBJECTIVE: PHYSICAL EXAMINATION: VITAL SIGNS: Temperature 98.2, pulse 65, respiratory rate 18, blood pressure 156/95, oxygen saturation 96% on room air. GENERAL APPEARANCE: Awake, alert, oriented to person, place and time. HEENT: Dry mucous membranes. NECK: No JVD, thyromegaly, cervical lymphadenopathy. LUNGS: Diminished with crackles at the right base. HEART: S1, S2, sinus rhythm. ABDOMEN: Distended, hyperactive bowel sounds. No rebound or guarding. No hepatosplenomegaly. No abdominal bruits. EXTREMITIES: Positive trace1+ pitting edema. LABORATORY DATA: White count 11, hemoglobin 7.7, hematocrit 23, platelet count 254. Sodium 139, potassium 3.6, chloride 106, bicarbonate 24, BUN 47, creatinine 2, glucose of 125, calcium of 7.9. BNP of 1,910. IMAGING STUDIES: Chest x-ray small right pleural effusion. Ultrasound or CT to confirm abdominal x-ray 08/10/2020 - nonspecific bowel gas pattern. No definite evidence of obstruction or perforation. ASSESSMENT: This is an 84-year-old female with a history of hypertension, chronic kidney disease stage 3-4, coronary artery disease, hypothyroidism, dyslipidemia, and hemodilutional anemia and small pleural effusion, possible fluid overload from IV fluids, admitted due to acute cholecystitis, choledocholithiasis. PLAN: 1. The patient underwent an MRCP which showed choledocholithiasis she had been admitted on IV Zosyn for acute cholecystitis. ERCP showed no obstructive stone which she may have passed prior to the ERCP. She was planned to have a laparoscopic cholecystectomy on 08/10/2020 at 3:00 p.m., but has been postponed due to abdominal distention. Evaluation included abdominal film which showed no free air. The patient has developed [id number] renal failure, now at stage 4 and had been in positive balance with a small right pleural effusion. 2. The patient has been given IV Lasix repeat metabolic panel later today and will need to optimize prior to surgery. Plan for surgery is tomorrow. 3. The patient has resumed back on a full liquid diet today. 4. Nephrology consult as the patient's renal function worsens. TIAD
[2020-08-10 16:15] LABS: HEMOGLOBIN 10.1 g/dl (12.0-15.5)
[2020-08-10 16:33] LABS: CALCIUM LEVEL 8.4 MG/DL (8.8-10.2); GLOMERULAR FILTRATION RATE 25.4 (>32); POTASSIUM SERUM 3.5 MEQ/L (3.5-5.1)
[2020-08-11] VITALS (7 sets, daily range): BP systolic 105–154; BP diastolic 66–78
[2020-08-11] MEDS: PIPERACILLIN/TAZOBACTAM SOD 2.25 GM in D5W MINI-BAG PLUS 50 ML IV SCH ×4 (02:22→21:03)
[2020-08-11] MEDS: METOCLOPRAMIDE INJ 10MG/2ML VIAL (J2765 PER 1) IV SCH ×4 (02:22→21:00)
--- NOTE | 2020-08-11 06:47 | REPVR ---
PROCEDURE INFORMATION: Exam: XR Chest Exam date and time: 08/11/2020 6:08 AM Age: 84 years old Clinical indication: Other: Preoperative, pleural effusion check resolution; Additional info: Preoperative. Pleural effusion check resolution TECHNIQUE: Imaging protocol: XR of the chest Views: 1 view. COMPARISON: CR PORTABLE CHEST X-RAY 08/10/2020 5:43 AM FINDINGS: Lungs: Bibasilar atelectasis or scarring. Pleural spaces: Trace right pleural effusion as before. Heart/Mediastinum: Unremarkable. No cardiomegaly. Bones/joints: Osteopenia. IMPRESSION: No significant interval change. Electronically signed by: Hugo Vaughn On 08/11/2020 06:47:18 AM
[2020-08-11 07:17] LABS: HEMATOCRIT 31.5 % (36.0-47.0); HEMOGLOBIN 10.4 g/dl (12.0-15.5); MEAN CORPUSCULAR HEMOGLOBIN 27.7 pg (27.0-33.0); PLATELET COUNT, AUTOMATED 257 10^3/uL (150-450); RED BLOOD COUNT 3.75 10^6/uL (4.00-5.40); WHITE BLOOD COUNT 10.4 10^3/uL (4.0-10.0)
--- NOTE | 2020-08-11 07:30 | IPNPDOC ---
Date Seen The patient was seen on 08/11/20. Progress Note Pls have community case manager call hypertype at [phone] to STAT transcribe Hospitalist progress note dictated job # [id number] VS, I&O, 24H, Fishbone Vital Signs/I&O Vital Signs Date Time Temp Pulse Resp B/P (MAP) Pulse Ox O2 Delivery O2 Flow Rate FiO2 08/11/20 05:20 98.7 66 20 105/73 (84) 97 Room Air 08/08/20 17:42 100 I&O- Last 24 Hours up to 6 AM 08/11/20 06:00 Intake Total 1845 ml Balance 1845 ml Laboratory Data 24H LABS Laboratory Tests 2 08/10/20 11:31: Bedside Glucose (Misc Panel) 211H 08/10/20 15:49: Anion Gap 7L, Glomerular Filtration Rate 25.4L, Calcium Level 8.4L 08/10/20 16:31: Bedside Glucose (Misc Panel) 238H 08/10/20 19:52: Bedside Glucose (Misc Panel) 217H 08/10/20 23:54: Bedside Glucose (Misc Panel) 180H 08/11/20 05:41: Bedside Glucose (Misc Panel) 155H 08/11/20 06:45: Nucleated Red Blood Cells % (auto) 0.0 CBC/BMP Laboratory Tests 08/10/20 15:49 08/11/20 06:45 Microbiology Microbiology 08/06/20 Blood Culture - Preliminary, Resulted No Growth after 72 hours. All specime... WESTON FARRIS MD Aug 11, 2020 07:30
--- NOTE | 2020-08-11 07:31 | IPNPDOC ---
Text Note Date of Service The patient was seen on 08/11/20. NOTE Patient been for cholecystitis, choledocholithiasis. She underwent ERCP with s phincterotomy 2 days ago. She had some post procedure abdominal distention so I held off on performing cholecystitis yesterday. She had been starting to pass gas since yesterday and had one bowel movement. She reports no significant pain or discomfort. She also received 2 units of packed RBC yesterday to correct her anemia. Vitals within normal. She's been afebrile. Impression and plan Cholecystitis with choledocholithiasis status post ERCP Patient is for robotic-assisted laparoscopic cholecystectomy today. Plan to use ICG to the biliary tree identification. VS,Fishbone, I+O VS, Fishbone, I+O Laboratory Tests 08/10/20 15:49 08/11/20 06:45 Vital Signs Date Time Temp Pulse Resp B/P (MAP) Pulse Ox O2 Delivery O2 Flow Rate FiO2 08/11/20 05:20 98.7 66 20 105/73 (84) 97 Room Air 08/08/20 17:42 100 I&O- Last 24 Hours up to 6 AM 08/11/20 06:00 Intake Total 1845 ml Balance 1845 ml LALO JACKSON MD Aug 11, 2020 07:31
[2020-08-11 07:41] LABS: ALBUMIN 1.9 GM/DL (3.2-5.2); BILIRUBIN,TOTAL 1.8 MG/DL (0.2-1.0); CALCIUM LEVEL 8.4 MG/DL (8.8-10.2); CREATININE FOR GFR 1.86 MG/DL (0.55-1.30); GLOMERULAR FILTRATION RATE 27.6 (>32); POTASSIUM SERUM 3.8 MEQ/L (3.5-5.1)
[2020-08-11] MEDS ORDERED: BUPIVACAINE HCL 0.25% 30ML VIAL As Ordered ONE (07:59)
[2020-08-11] MEDS ORDERED: LIDOCAINE 1% SDV 30ML VIAL As Ordered ONE (07:59)
--- NOTE | 2020-08-11 08:49 | IPN ---
PROGRESS NOTE DATE: 08/11/2020 SUBJECTIVE: Denies fever, chills, or pain in the epigastric right upper quadrant, nausea, vomiting, or shortness of breath. OBJECTIVE: VITAL SIGNS: Temperature 98.7, pulse 66, respiratory rate 20, blood pressure 105/73, 97% on room air. GENERAL: Awake, alert, and oriented x3. No use of respiratory accessory muscles. No pallor or cyanosis. HEENT: No JVD or threshold. Dry mucous membranes. No stridor. Extraocular muscles intact. LUNGS: Diminished with fine crackles at the right base and otherwise clear. No wheezing. HEART: S1, S2. Sinus rhythm. ABDOMEN: Obese, soft, nontender, and nondistended. Positive bowel sounds. EXTREMITIES: No cyanosis or clubbing. LABORATORY DATA: From 08/11 white count 10, hemoglobin 10, hematocrit 31, platelet count 257,000. Metabolic panel is still pending. IMAGING DATA: Chest x-ray 08/11/2020, no interval change, bibasilar atelectasis or scarring. Trace right pleural effusion. No cardiomegaly. ASSESSMENT: An 84-year-old female admitted for acute cholecystitis found to have choledocholithiasis with a 3 mm stone spontaneously passed status post ERCP with sweeping of the biliary tree. Current issues are as follows: 1. Acute cholecystitis. 2. Choledocholithiasis. 3. Small right pleural effusion most likely fluid overload; rule out congestive heart failure (CHF), but compensated. 4. Obesity. 5. History of coronary artery disease (CAD). 6. Acute on chronic kidney disease stage 3 to 4. 7. Hypothyroidism. 8. Dyslipidemia. PLAN: The patient is n.p.o. No intravenous (IV) fluids due to recent fluid overload with small pleural effusion. The patient may have 1 liter during the perioperative period. Hyperglycemic protocol. General surgery to perform laparoscopic cholecystectomy. She is medically stable to proceed to surgery. Monitor the patient's Is and Os, daily weights, fluids restriction postoperatively, and continue with monitoring her electrolytes and renal function. Continue with IV antibiotics for now. MTDD
[2020-08-11] MEDS: PANTOPRAZOLE 40MG VIAL (C9113 PER 1) IV SCH (09:00)
[2020-08-11] MEDS ORDERED: fentaNYL 100 MCG/2 ML INJECTION (J3010) As Ordered ONE ×2 (09:12→11:26)
[2020-08-11] MEDS ORDERED: dexameTHASONE 4 MG/ML 1ML VIAL (J1100 PER 1MG) As Ordered ONE (09:12)
[2020-08-11] MEDS ORDERED: ETOMIDATE INJ 20MG/10ML VIAL As Ordered ONE (09:12)
[2020-08-11] MEDS ORDERED: LIDOCAINE 2% 100MG/5ML SDV (FOR ANES.) As Ordered ONE (09:12)
[2020-08-11] MEDS ORDERED: ROCURONIUM BROMIDE 50 MG/5 ML VIAL As Ordered ONE ×2 (09:12→10:46)
[2020-08-11] MEDS ORDERED: ONDANSETRON 4MG/2ML VIAL As Ordered ONE (09:12)
[2020-08-11] MEDS ORDERED: propofoL 200 MG/20 ML VIAL As Ordered ONE (09:12)
[2020-08-11] MEDS ORDERED: SUGAMMADEX SODIUM 500 MG/5 ML VIAL (BRIDION) As Ordered ONE (09:25)
[2020-08-11] MEDS ORDERED: ACETAMINOPHEN 1000MG 100ML IV BTL (OFIRMEV) (J0131 PER 10MG) As Ordered ONE (10:22)
[2020-08-11] MEDS ORDERED: KETOROLAC 60MG 2ML VIAL As Ordered ONE (11:26)
--- NOTE | 2020-08-11 12:04 | ROOPDOC ---
[facility] Report Of Operation Report of Operation DATE OF PROCEDURE: 08/11/20 PREPROCEDURE DIAGNOSES: acute cholecystitis. POSTPROCEDURE DIAGNOSES: gangrenous cholecystitis. PROCEDURE: Robotic assisted laparoscopic fenestrating subtotal cholecystectomy. SURGEON: Gaston Ochoa CONCRETE FLOATER: ANESTHESIA: General Endotracheal Anesthesia. ESTIMATED BLOOD LOSS: Approximately 150 mL. COMPLICATIONS: none. REMARKS: gangrenous wall gagandeep posterior wall which is essentially liquefied, pus inside of gallbladder and within gb wall. multiple small pigment stones removed, opening to cystic duct closed with pursestring 2-0 vloc. PROCEDURE NOTE: . DESCRIPTION OF PROCEDURE: . GASTON OCHOA MD Aug 11, 2020 12:04
--- NOTE | 2020-08-11 12:08 | POST-OPPD ---
Postoperative Procedure Note Date Of Procedure: Aug 11, 2020 DATE OF PROCEDURE: 08/11/20 PREPROCEDURE DIAGNOSES: acute cholecystitis. POSTPROCEDURE DIAGNOSES: gangrenous cholecystitis. PROCEDURE: Robotic assisted laparoscopic fenestrating subtotal cholecystectomy. SURGEON: Gaston Ochoa CONSTRUCTION CONTRACTOR: ANESTHESIA: General Endotracheal Anesthesia. ESTIMATED BLOOD LOSS: Approximately 150 mL. COMPLICATIONS: none. REMARKS: gangrenous wall gagandeep posterior wall which is essentially liquefied, pus inside of gallbladder and within gb wall. multiple small pigment stones removed, opening to cystic duct closed with pursestring 2-0 vloc. SPECIMENS: portion of gallbladder DRAINS: 19 Cali drain to gb bed COMPLICATIONS: none POSTOPERATIVE CONDITION: stable, extubated GASTON OCHOA MD Aug 11, 2020 12:08
[2020-08-11] MEDS ORDERED: METOCLOPRAMIDE INJ 10MG/2ML VIAL (J2765 PER 1) IV PRN (12:40)
[2020-08-11] MEDS ORDERED: LR 1,000 ML IV SCH (12:40)
[2020-08-11] MEDS ORDERED: ONDANSETRON 4MG/2ML VIAL IV PRN (12:40)
[2020-08-11] MEDS ORDERED: fentaNYL 100 MCG/2 ML INJECTION (J3010) IV PRN (12:40)
[2020-08-12 02:05] VITALS: BP 153/66
[2020-08-12] MEDS: PIPERACILLIN/TAZOBACTAM SOD 2.25 GM in D5W MINI-BAG PLUS 50 ML IV SCH ×4 (02:14→20:58)
[2020-08-12] MEDS: METOCLOPRAMIDE INJ 10MG/2ML VIAL (J2765 PER 1) IV SCH (02:14)
[2020-08-12 05:14] VITALS: BP 152/66
[2020-08-12 06:57] LABS: HEMATOCRIT 30.1 % (36.0-47.0); HEMOGLOBIN 9.7 g/dl (12.0-15.5); MEAN CORPUSCULAR HEMOGLOBIN 27.6 pg (27.0-33.0); MEAN CORPUSCULAR HGB CONC 32.2 g/dl (32.0-36.5); MEAN CORPUSCULAR VOLUME 85.5 fl (80.0-96.0); PLATELET COUNT, AUTOMATED 249 10^3/uL (150-450); RED BLOOD COUNT 3.52 10^6/uL (4.00-5.40); WHITE BLOOD COUNT 12.6 10^3/uL (4.0-10.0)
[2020-08-12 07:13] LABS: ALBUMIN 1.7 GM/DL (3.2-5.2); BILIRUBIN,TOTAL 1.5 MG/DL (0.2-1.0); CREATININE FOR GFR 1.67 MG/DL (0.55-1.30); GLOMERULAR FILTRATION RATE 31.3 (>32); MAGNESIUM LEVEL 1.8 MG/DL (1.8-2.4); POTASSIUM SERUM 3.8 MEQ/L (3.5-5.1); TOTAL PROTEIN 5.2 GM/DL (6.4-8.2)
[2020-08-12] MEDS: PANTOPRAZOLE 40MG VIAL (C9113 PER 1) IV SCH (07:58)
--- NOTE | 2020-08-12 08:20 | IPNPDOC ---
Date Seen The patient was seen on 08/12/20. Progress Note Hospitalist discharge summary dictated job #[id number]. Please have the machine made shoe unit worker call MARCELLO Briceno PE at [phone] if summary is needed urgently for stat drying unit felting machine operator VS, I&O, 24H, Fishbone Vital Signs/I&O Vital Signs Date Time Temp Pulse Resp B/P (MAP) Pulse Ox O2 Delivery O2 Flow Rate FiO2 08/12/20 05:14 98.3 62 17 152/66 (94) 97 Nasal Cannula 1.0 08/08/20 17:42 100 I&O- Last 24 Hours up to 6 AM 08/12/20 06:00 Intake Total 2270 ml Output Total 1090 ml Balance 1180 ml Laboratory Data 24H LABS Laboratory Tests 2 08/12/20 00:12: Bedside Glucose (Misc Panel) 179H 08/12/20 06:19: Nucleated Red Blood Cells % (auto) 0.0, Anion Gap 6L, Glomerular Filtration Rate 31.3L, Calcium Level 8.0L, Magnesium Level 1.8, Total Bilirubin 1.5H, Aspartate Amino Transf (AST/SGOT) 25, Alanine Aminotransferase (ALT/SGPT) 45, Alkaline Phosphatase 300H, Total Protein 5.2L, Albumin 1.7L, Albumin/Globulin Ratio 0.5L CBC/BMP Laboratory Tests 08/12/20 06:19 Microbiology Microbiology 08/11/20 Gram Stain - Final, Resulted 08/11/20 Abscess Culture, Resulted Pending 08/11/20 Anaerobic Culture, Resulted Pending 08/11/20 Anaerobic Culture, Received Pending 08/11/20 Body Fluid Culture, Received Pending 08/06/20 Blood Culture - Final, Complete NO GROWTH AFTER 5 DAYS WESTON FARRIS MD Aug 12, 2020 08:20
[2020-08-12] MEDS: ACETAMINOPHEN TAB 650MG DOSE (2X325MG) PO PRN ×3 (09:46→21:04)
--- NOTE | 2020-08-12 09:53 | ECGEPIP ---
[facility] Test Date: 2020-08-11 Pat Name: ELEANOR SUNG Department: Room: [place] [address] Gender: Female Manager Hvac: julian : 1935 Requested By: Boo Whitfield Order Number: [id number] Reading MD: Lamonte Moore Measurements Intervals [place] Rate: 67 P: 48 HI: 170 QRS: 16 QRSD: 94 T: 33 QT: 408 QTc: 431 Interpretive Statements Normal sinus rhythm Comparison tracing not on file Electronically Signed on 08-12-2020 9:53:11 EDT by Lamonte Moore
--- NOTE | 2020-08-12 14:08 | IPN ---
PROGRESS NOTE DATE: 08/12/2020 SUBJECTIVE: Patient had no fever or chills overnight. She complaints of right upper quadrant epigastric pain as well as at the drain site, rated as 8/10 when she is not moving, better with pain medications; it decreases down to 4/10. No nausea or vomiting. Does not feel well this morning. No headaches, shortness of breath, palpitations, chest pain. PHYSICAL EXAMINATION: Temperature 98.3, pulse 62, respiratory rate 17, blood pressure 152/66, 97% on room air. GENERAL: Awake, alert, oriented times three, able to speak in full sentences. No jugular venous distention (JVD) or thyromegaly. LUNGS: Diminished but no wheezing or rales. HEART: S1, S2. Sinus rhythm. ABDOMEN: Has a right-sided drain with bloody drainage. No purulence. Tender in the epigastric and right upper quadrant. No rebound or guarding. Obese abdomen. No hepatosplenomegaly. No abdominal bruit. EXTREMITIES: Chronic edema. LABORATORY DATA: Reviewed. Creatinine is 1.67, back to baseline. White count is 12.6, slightly elevated from 10. Still on intravenous Zosyn 2.25 intravenous (IV) every 6 hours renally dosed. MICROBIOLOGY: Abdominal fluids still pending. Blood culture negative after five days ASSESSMENT: An 84-year-old female admitted for acute cholecystitis found to have choledocholithiasis with a possible 3 mm stone that spontaneously passed, statues post endoscopic retrograde cholangiopancreatography (ERCP), sweeping of biliary tree. Current issues: 1. Acute cholecystitis status post laparoscopic cholecystectomy on 08/11/2020. 2. Choledocholithiasis, resolved status post endoscopic retrograde cholangiopancreatography (ERCP) with sweeping of biliary tree, but possible 3 mm stone spontaneously passed. 3. Small right pleural effusion, most likely due to fluid overload. Echocardiogram is pending. 4. Obesity. Body mass index (BMI) of 34.2. 5. Chronic kidney disease (CKD) stage III to IV. At baseline creatinine. 6. History of coronary artery disease (CAD) without acute ischemic symptoms. 7. Hypothyroidism. 8. Dyslipidemia. PLAN: 1. Postoperative management per general surgery. 2. Patient is currently on an oral diet. 3. Discontinue intravenous fluids. 4. Renal function is back to her normal. 5. Monitor intake and output (I and O) and daily weight. 6. Pain control and bowel regimen as needed. 7. Deep venous thrombosis (DVT) prophylaxis with compression stockings.
[2020-08-12 14:23] VITALS: BP 152/66
[2020-08-12 22:00] VITALS: BP 148/67
[2020-08-13] MEDS: PIPERACILLIN/TAZOBACTAM SOD 2.25 GM in D5W MINI-BAG PLUS 50 ML IV SCH (02:53)
[2020-08-13 06:00] VITALS: BP_SYST 117; BP_SYST 171; BP_DIAS 69; BP_DIAS 74
[2020-08-13 06:50] LABS: HEMATOCRIT 29.3 % (36.0-47.0); HEMOGLOBIN 9.4 g/dl (12.0-15.5); MEAN CORPUSCULAR HEMOGLOBIN 27.9 pg (27.0-33.0); MEAN CORPUSCULAR HGB CONC 32.1 g/dl (32.0-36.5); MEAN CORPUSCULAR VOLUME 86.9 fl (80.0-96.0); PLATELET COUNT, AUTOMATED 242 10^3/uL (150-450); RED BLOOD COUNT 3.37 10^6/uL (4.00-5.40); WHITE BLOOD COUNT 12.4 10^3/uL (4.0-10.0)
[2020-08-13 07:47] LABS: ALBUMIN 1.6 GM/DL (3.2-5.2); BILIRUBIN,TOTAL 1.2 MG/DL (0.2-1.0); CALCIUM LEVEL 8.8 MG/DL (8.8-10.2); CREATININE FOR GFR 1.42 MG/DL (0.55-1.30); GLOMERULAR FILTRATION RATE 37.7 (>32); MAGNESIUM LEVEL 1.9 MG/DL (1.8-2.4); POTASSIUM SERUM 3.6 MEQ/L (3.5-5.1)
[2020-08-13] MEDS ORDERED: oxyCODONE 5MG TAB PO ONE (08:45)
--- NOTE | 2020-08-13 08:56 | IPNPDOC ---
Date Seen The patient was seen on 08/13/20. Progress Note pls have mechanical unit repairer call hypertype at [phone] to stat transcibe hospitalist progress note job # [id number] VS, I&O, 24H, Fishbone Vital Signs/I&O Vital Signs Date Time Temp Pulse Resp B/P (MAP) Pulse Ox O2 Delivery O2 Flow Rate FiO2 08/13/20 06:00 98.7 69 18 171/69 (103) Room Air 95.0 08/12/20 22:00 95 08/08/20 17:42 100 I&O- Last 24 Hours up to 6 AM 08/13/20 06:00 Intake Total 1180 ml Output Total 40 ml Balance 1140 ml Laboratory Data 24H LABS Laboratory Tests 2 08/12/20 11:59: Bedside Glucose (Misc Panel) 194H 08/12/20 17:53: Bedside Glucose (Misc Panel) 164H 08/12/20 23:38: Bedside Glucose (Misc Panel) 171H 08/13/20 06:11: Nucleated Red Blood Cells % (auto) 0.0, Anion Gap 6L, Glomerular Filtration Rate 37.7, Calcium Level 8.8, Magnesium Level 1.9, Total Bilirubin 1.2H, Aspartate Amino Transf (AST/SGOT) 15, Alanine Aminotransferase (ALT/SGPT) 33, Alkaline Phosphatase 245H, Total Protein 6.0L, Albumin 1.6L, Albumin/Globulin Ratio 0.4L CBC/BMP Laboratory Tests 08/13/20 06:11 Microbiology Microbiology 08/11/20 Gram Stain - Final, Resulted 08/11/20 Abscess Culture, Resulted Pending 08/11/20 Anaerobic Culture, Resulted Pending 08/11/20 Anaerobic Culture, Received Pending 08/11/20 Body Fluid Culture - Preliminary, Resulted Enterococcus Faecium Escherichia Coli 08/06/20 Blood Culture - Final, Complete NO GROWTH AFTER 5 DAYS WESTON FARRIS MD Aug 13, 2020 08:56
[2020-08-13] MEDS ORDERED: TORSEMIDE 10 MG TABLET PO SCH (09:00)
[2020-08-13] MEDS: ACETAMINOPHEN 500 MG TAB PO SCH ×2 (09:00→21:23)
[2020-08-13] MEDS: CARVedilol 12.5 MG TAB PO SCH (09:20)
[2020-08-13] MEDS: PANTOPRAZOLE 40MG VIAL (C9113 PER 1) IV SCH (09:21)
--- NOTE | 2020-08-13 11:25 | IPN ---
PROGRESS NOTE DATE: 08/13/2020 SUBJECTIVE: Patient complains of right upper quadrant and epigastric abdominal discomfort, worse when she ambulates. No nausea or vomiting, but has had decreased appetite and has not eaten much of her meals, about 20%. No fever or chills overnight. No chest pain, pressure or tightness or shortness of breath. Despite blood pressure 177 systolic she denies any chest pain, headache, changes in vision, chest pressure. OBJECTIVE: Temperature 98.7, pulse 69, respiratory rate 18, blood pressure 171/69, 95% on room air. General: No use of respiratory accessory muscles. HEENT: Anicteric, no jaundice. Pupils equally round and reactive. Face is symmetric. No pallor or icterus. Moist mucous membranes. Neck: No JVD, thyromegaly or cervical lymphadenopathy. Lungs: Diminished, fine crackles at the right base otherwise clear in upper lobe. Heart: S1 and S2, sinus rhythm. Abdomen: Obese, soft, slightly tender right upper quadrant. Drain with bloody drainage noted, 110 mL from overnight. Extremities: Trace edema. LABORATORY DATA: White count 12.4, hemoglobin 9.4, hematocrit 29, platelet count 242. Sodium 141, potassium 3.6, chloride 108, bicarb 27, BUN 32, creatinine 1.42, glucose 154. Body fluid E. faecalis and E. coli both sensitive to Levaquin; patient had been on Zosyn since 08/06/2020. IMAGING STUDIES: Reviewed. ASSESSMENT: This is an 84-year-old female, Full Code, with history of obesity, chronic kidney disease stage 3, CAD, hypothyroidism, dyslipidemia admitted due to complaints of epigastric, right upper quadrant abdominal pain found to have acute cholecystitis with possible choledocholithiasis. IMPRESSIONS/PLAN: 1. Acute cholecystitis: Status post laparoscopic cholecystectomy on 08/11/2020 currently with a drain, managed by surgery, recent back on a low residue diet. 2. Choledocholithiasis: Resolved status post ERCP with sweeping of biliary tree, but possible passing spontaneously of a [address] Cowan. 3. Small right pleural effusion: Resolved. Most likely due to fluid overload due to I.V. fluids given during the n.p.o. status. 4. Obesity: BMI of 34.2. 5. Chronic kidney disease stage 3: Currently at baseline creatinine. 6. History of CAD: Without acute ischemic symptoms. 7. Hypertension uncontrolled secondary to pain. 8. Hypothyroidism. 9. Dyslipidemia. Post-op management based on general surgery. Patient is doing well and tolerating her diet without vomiting or abdominal pain. She complains of some loose stools, but it has not been more than over a 24 hour period. I.V. fluids have been discontinued. Patient's renal function is back to baseline. May resume her home medications both for her blood pressure as well as her diuretics. Patient says that she would prefer not to take too much pain medications currently on Tylenol 1 gram twice a day. Monitor liver function tests. Bilirubin is coming down as well as transaminases status post cholecystectomy and ERCP. DVT prophylaxis currently still with compression stockings. DISPOSITION: ERU consult and await clearance from surgery. CODE STATUS: Full Code.
[2020-08-13] MEDS: LevoFLOXacin 750 MG TABLET PO SCH (11:35)
[2020-08-13] MEDS: HumaLOG INSULIN (NovoLOG) PER UNIT SC SCH ×3 (12:09→21:00)
[2020-08-13] MEDS ORDERED: oxyCODONE 5MG TAB PO PRN (13:00)
[2020-08-13 14:35] VITALS: BP 117/56
[2020-08-13 22:00] VITALS: BP 157/63
[2020-08-14 06:00] VITALS: BP 150/75
[2020-08-14 06:58] LABS: HEMATOCRIT 30.4 % (36.0-47.0); HEMOGLOBIN 9.6 g/dl (12.0-15.5); MEAN CORPUSCULAR HEMOGLOBIN 27.7 pg (27.0-33.0); MEAN CORPUSCULAR HGB CONC 31.6 g/dl (32.0-36.5); MEAN CORPUSCULAR VOLUME 87.6 fl (80.0-96.0); PLATELET COUNT, AUTOMATED 240 10^3/uL (150-450); RED BLOOD COUNT 3.47 10^6/uL (4.00-5.40); WHITE BLOOD COUNT 9.5 10^3/uL (4.0-10.0)
[2020-08-14 07:26] LABS: ALBUMIN 1.6 GM/DL (3.2-5.2); BILIRUBIN,TOTAL 0.9 MG/DL (0.2-1.0); CALCIUM LEVEL 8.6 MG/DL (8.8-10.2); CREATININE FOR GFR 1.23 MG/DL (0.55-1.30); GLOMERULAR FILTRATION RATE 44.5 (>32); MAGNESIUM LEVEL 1.8 MG/DL (1.8-2.4); POTASSIUM SERUM 3.7 MEQ/L (3.5-5.1); TOTAL PROTEIN 6.1 GM/DL (6.4-8.2)
--- NOTE | 2020-08-14 07:47 | ECHO ---
DATE OF PROCEDURE: 08/11/2020 Age: 84 Gender: Female Height: 153 cm Weight: 82 kg REFERRING PHYSICIAN: Dr. Betsy Littlejohn. INDICATION: Congestive heart failure. MEASUREMENTS: IVS 0.6 cm LV 5.0 cm LVPW 0.9 cm LA 3.9 cm Aorta 2.9 cm RV 2.9 cm Mitral E wave velocity 134 A wave 148 E prime septal 6.1 E prime lateral 6.7 FINDINGS: This study is of rather limited technical quality with very poor visualization. Patient is in sinus rhythm. Left ventricle has normal size and overall likely normal systolic function based on limited views. I estimate EF around 65%. Right ventricle was poorly visualized, and I cannot comment on its structural systolic function. Both atria appear at least mildly enlarged. Right atrium though was very poorly visualized. Aortic valve is heavily sclerotic. There appears to be at least some restriction of cusp mobility based on 2D images. There are also prominent degenerative abnormalities of mitral valve with thickening of leaflets and mitral annular calcifications, and at least some restriction of mobility is noted based on 2D imaging. Right-sided heart valves were very poorly visualized, and I cannot comment on their structure. No pericardial effusion is noted. Inferior vena cava was not visualized. Aortic root is normal. Aortic arch and abdominal aorta were not well seen. Doppler interrogation of aortic valve reveals minimal stenosis with mean gradient 9 mmHg and no insufficiency. There is mild mitral stenosis with mean gradient 4 and peak gradient 10 mmHg. Mild insufficiency of the valve is noted. Evaluation of diastolic function is inconclusive due to underlying mitral stenosis. CONCLUSIONS: 1. Study is of limited technical quality. Patient is in sinus rhythm. 2. Normal LV size with normal LV systolic function. 3. Mild aortic stenosis. 4. Mild mitral stenosis. 5. Right-sided heart chambers and valves were poorly visualized. 6. Unable to estimate central venous pressure and pulmonary artery pressure. [facility]
[2020-08-14] MEDS: HumaLOG INSULIN (NovoLOG) PER UNIT SC SCH ×4 (09:08→20:46)
[2020-08-14] MEDS: PANTOPRAZOLE 40MG VIAL (C9113 PER 1) IV SCH (09:08)
[2020-08-14] MEDS: TORSEMIDE 10 MG TABLET PO SCH (09:11)
[2020-08-14] MEDS: ACETAMINOPHEN 500 MG TAB PO SCH ×2 (09:12→20:46)
[2020-08-14] MEDS: CARVedilol 12.5 MG TAB PO SCH (09:13)
[2020-08-14 14:00] VITALS: BP 129/57
--- NOTE | 2020-08-14 18:06 | IPNPDOC ---
Subjective Date Seen The patient was seen on 08/14/20. Subjective Chief Complaint/HPI continues to have right upper quadrant pain but getting slowly better. Still not moving much. working with PT. Objective Physical Examination General Exam: Positive: Alert, Cooperative, No Acute Distress Eye Exam: Positive: PERRLA, Conjunctiva & lids normal, EOMI; Negative: Sclera icteric Neck Exam: Positive: Supple; Negative: JVD, thyromegaly Chest Exam: Positive: Normal air movement, Diminished (at the bases with crackles) Heart Exam: Positive: Rate Normal, Regular Rhythm, Normal S1, Normal S2, Murmur s (soft systolic murmur); Negative: Rubs Abdomen Exam: Positive: Normal bowel sounds, Soft, Tenderness (right upper quadrant); Negative: Hepatospenomegaly Extremity Exam: Positive: Edema; Negative: Clubbing, Cyanosis Assessment /Plan Assessment This is an 84-year-old female, with history of GIST, CAD w stents x2 / DLP, NIDDM w retinopathy and neuropathy, HTN, Gout, Sigmoid diverticulosis, Fatty liver, Hypothyroidism, Anemia, Dextroconvex scoliosis, Left hip prosthesis / Debility uses a walking aid, obesity, chronic kidney disease stage 3, CAD, dyslipidemia admitted due to complaints of epigastric, right upper quadrant abdominal pain found to have acute cholecystitis with choledocholithiasis. Acute cholecystitis: Status post laparoscopic cholecystectomy on 08/11/2020 currently with a drain, plan for her to go home with drain and follow up with Don in 1 week or earlier if the drain output increases or becomes greenish. on a low residue diet. continue levofloxacin Choledocholithiasis: Resolved status post ERCP on 08/07/20 with sweeping of biliary tree, but possible passing spontaneously of a [address] Cowan. Small right pleural effusion: Resolved. Most likely due to fluid overload due to I.V. fluids given during the n.p.o. status. Continue torsemide Obesity: BMI of 34.2. Chronic kidney disease stage 3: Currently at baseline creatinine. Continue torsemide History of CAD: Without acute ischemic symptoms. Hypertension Amlodipine, Coreg, and torsemide Hypothyroidism. Synthroid Dyslipidemia. Plan/VTE VTE Prophylaxis Ordered?: Yes VS, I&O, 24H, Fishbone Vital Signs/I&O Vital Signs Date Time Temp Pulse Resp B/P (MAP) Pulse Ox O2 Delivery O2 Flow Rate FiO2 08/14/20 14:00 98.7 66 18 129/57 (81) 94 Room Air 08/13/20 06:00 95.0 08/08/20 17:42 100 I&O- Last 24 Hours up to 6 AM 08/14/20 06:00 Intake Total 670 ml Output Total 40 ml Balance 630 ml Laboratory Data 24H LABS Laboratory Tests 2 08/13/20 21:20: Bedside Glucose (Misc Panel) 145H 08/14/20 06:40: Nucleated Red Blood Cells % (auto) 0.0, Anion Gap 4L, Glomerular Filtration Rate 44.5, Calcium Level 8.6L, Magnesium Level 1.8, Total Bilirubin 0.9, Aspartate Amino Transf (AST/SGOT) 12, Alanine Aminotransferase (ALT/SGPT) 26, Alkaline Phosphatase 233H, Total Protein 6.1L, Albumin 1.6L, Albumin/Globulin Ratio 0.4L 08/14/20 11:06: Bedside Glucose (Misc Panel) 278H 08/14/20 16:20: Bedside Glucose (Misc Panel) 187H CBC/BMP Laboratory Tests 08/14/20 06:40 Microbiology Microbiology 08/11/20 Gram Stain - Final, Complete 08/11/20 Abscess Culture - Final, Complete Enterococcus Faecium Escherichia Coli 08/11/20 Anaerobic Culture - Final, Complete 08/11/20 Anaerobic Culture - Final, Complete 08/11/20 Body Fluid Culture - Final, Complete Enterococcus Faecium Escherichia Coli 08/06/20 Blood Culture - Final, Complete NO GROWTH AFTER 5 DAYS SHEFALI GOYAL MD Aug 14, 2020 18:06
[2020-08-14 22:00] VITALS: BP 133/58
[2020-08-15] MEDS: LevoFLOXacin 750 MG TABLET PO SCH (05:55)
[2020-08-15 06:00] VITALS: BP 161/70
[2020-08-15 06:54] LABS: HEMATOCRIT 31.1 % (36.0-47.0); HEMOGLOBIN 9.8 g/dl (12.0-15.5); MEAN CORPUSCULAR HEMOGLOBIN 27.9 pg (27.0-33.0); MEAN CORPUSCULAR HGB CONC 31.5 g/dl (32.0-36.5); MEAN CORPUSCULAR VOLUME 88.6 fl (80.0-96.0); PLATELET COUNT, AUTOMATED 272 10^3/uL (150-450); RED BLOOD COUNT 3.51 10^6/uL (4.00-5.40); WHITE BLOOD COUNT 8.9 10^3/uL (4.0-10.0)
[2020-08-15 07:26] LABS: ALBUMIN 1.7 GM/DL (3.2-5.2); BILIRUBIN,TOTAL 0.8 MG/DL (0.2-1.0); CALCIUM LEVEL 9.2 MG/DL (8.8-10.2); CREATININE FOR GFR 1.11 MG/DL (0.55-1.30); GLOMERULAR FILTRATION RATE 50.1 (>32); MAGNESIUM LEVEL 1.7 MG/DL (1.8-2.4); POTASSIUM SERUM 3.8 MEQ/L (3.5-5.1); TOTAL PROTEIN 6.2 GM/DL (6.4-8.2)
[2020-08-15] MEDS: HumaLOG INSULIN (NovoLOG) PER UNIT SC SCH (08:29)
[2020-08-15 08:30] VITALS: BP 146/60
[2020-08-15] MEDS: CARVedilol 12.5 MG TAB PO SCH (08:30)
[2020-08-15] MEDS: PANTOPRAZOLE 40MG VIAL (C9113 PER 1) IV SCH (08:30)
[2020-08-15] MEDS: TORSEMIDE 10 MG TABLET PO SCH (08:30)
[2020-08-15] MEDS: ACETAMINOPHEN 500 MG TAB PO SCH (08:31)
[2020-08-15] MEDS ORDERED: ACET-683 PO (10:29)
[2020-08-15] MEDS ORDERED: MI-A80CH PO (10:29)
[2020-08-15] MEDS ORDERED: TORS5TAB2 PO (10:29)
[2020-08-15] MEDS ORDERED: LEVO750T13 PO (10:29)
[2020-08-15] MEDS ORDERED: ONDA-83 PO (10:29)
[2020-08-15] MEDS ORDERED: PANT40TA29 PO (10:29)
[2020-08-16] MEDS ORDERED: PANTOPRAZOLE 40MG TAB (PROTONIX) PO SCH (09:00)
--- NOTE | 2020-08-16 23:16 | DS.PDOC ---
Discharge Summary General Date of Admission Aug 06, 2020 at 18:05 Date of Discharge 08/15/20 Discharge Summary PROCEDURES PERFORMED DURING STAY: ERCP on 08/07/20 Laparoscopic cholecystectomy on 08/11/2020 DISCHARGE DIAGNOSES: Gangrenous cholecystitis with acute and chronic inflammation s/p cholecystectomy Choledocholithiasis s/p ERCP Fluid overload from fluid resuscitation SECONDARY DIAGNOSIS: History of GIST, CAD w stents x2, Mild Aortic stenosis and mild mitral stenosis. NIDDM w retinopathy and neuropathy, HTN, Gout, Sigmoid diverticulosis, Fatty liver, Hypothyroidism, Anemia, Dextroconvex scoliosis, Left hip prosthesis / Debility uses a walking aid, Obesity, chronic kidney disease stage 3, dyslipidemia COMPLICATIONS/CHIEF COMPLAINT: Acute Choleycystitis. HOSPITAL COURSE: This is an 84-year-old female, with history of GIST, CAD w stents x2 / DLP, NIDDM w retinopathy and neuropathy, HTN, Gout, Sigmoid diverticulosis, Fatty liver, Hypothyroidism, Anemia, Dextroconvex scoliosis, Left hip prosthesis / Debility uses a walking aid, obesity, chronic kidney disease stage 3, dyslipidemia admitted due to complaints of epigastric, right upper quadrant abdominal pain found to have acute cholecystitis with choledocholithiasis. Acute cholecystitis: Status post laparoscopic cholecystectomy on 08/11/2020 currently with a drain, plan for her to go home with drain and follow up with Don in 1 week or chilo ier if the drain output increases or becomes greenish. on a low residue diet. continue levofloxacin Choledocholithiasis: Resolved status post ERCP on 08/07/20 with sweeping of biliary tree, but possible passing spontaneously of a [address] Cowan. Small right pleural effusion: Resolved. Most likely due to fluid overload due to I.V. fluids given during the n.p.o. status. Continue torsemide Obesity: BMI of 34.2. Chronic kidney disease stage 3: Currently at baseline creatinine. Continue torsemide History of CAD: Without acute ischemic symptoms. Hypertension Amlodipine, Coreg, and torsemide Hypothyroidism. Synthroid Dyslipidemia. DISCHARGE MEDICATIONS: Please see below. ALLERGIES: Please see below. PHYSICAL EXAMINATION ON DISCHARGE: VITAL SIGNS: Please see below. General Exam: Positive: Alert, Cooperative, No Acute Distress Eye Exam: Positive: PERRLA, Conjunctiva & lids normal, EOMI; Negative: Sclera icteric Neck Exam: Positive: Supple; Negative: JVD, thyromegaly Chest Exam: Positive: Normal air movement, Diminished (at the bases with crackles) Heart Exam: Positive: Rate Normal, Regular Rhythm, Normal S1, Normal S2, Murmurs (soft systolic murmur); Negative: Rubs Abdomen Exam: Positive: Normal bowel sounds, Soft, Tenderness (right upper quadrant); Negative: Hepatosplenomegaly Extremity Exam: Positive: Edema; Negative: Clubbing, Cyanosis LABORATORY DATA: Please see below. ACTIVITY: [As tolerated]. DIET: Low fat and low cholesterol DISPOSITION: Home Health Service. DISCHARGE INSTRUCTIONS: Follow up Dr Ochoa in 1 week Monitor MARKELL drain output Keep dressing dry DISCHARGE CONDITION: [Stable]. TIME SPENT ON DISCHARGE:35 minutes. Vital Signs/I&Os Vital Signs Date Time Temp Pulse Resp B/P (MAP) Pulse Ox O2 Delivery O2 Flow Rate FiO2 08/15/20 08:30 72 146/60 08/15/20 06:00 98.2 19 95 Room Air 08/13/20 06:00 95.0 I&O- Last 24 Hours up to 6 AM 08/16/20 07:00 Intake Total 240 ml Output Total 0 ml Balance 240 ml Laboratory Data Labs 24H Laboratory Tests 2 08/16/20 09:40: Lab Scanned Report Transfusion Record Microbiology Microbiology 08/11/20 Gram Stain - Final, Complete 08/11/20 Abscess Culture - Final, Complete Enterococcus Faecium Escherichia Coli 08/11/20 Anaerobic Culture - Final, Complete 08/11/20 Anaerobic Culture - Final, Complete 08/11/20 Body Fluid Culture - Final, Complete Enterococcus Faecium Escherichia Coli 08/06/20 Blood Culture - Final, Complete NO GROWTH AFTER 5 DAYS Discharge Medications Scheduled Allopurinol (Allopurinol) 100 Mg Tablet, 100 MG PO DAILY, (Reported) Amlodipine Besylate (Amlodipine Besylate) 5 Mg Tablet, 5 MG PO DAILY, (Reported) Aspirin (Aspirin) 81 Mg Tab.chew, 81 MG PO DAILY, (Reported) Carvedilol (Carvedilol) 25 Mg Tablet, 25 MG PO BID, (Reported) Glimepiride (Glimepiride) 4 Mg Tablet, 4 MG PO BID, (Reported) Levofloxacin (Levofloxacin) 750 Mg Tablet, 750 MG PO Q48H start from 08/17/20 Levothyroxine Sodium (Levothyroxine Sodium) 150 Mcg Tablet, 150 MCG PO DAILY, (Reported) Metformin HCl (Metformin HCl ER) 500 Mg Tab.er.24h, 1,000 MG PO DAILY, (Reported) Metformin HCl (Metformin HCl ER) 500 Mg Tab.er.24h, 500 MG PO QHS, (Reported) Pantoprazole Sodium (Pantoprazole Sodium) 40 Mg Tablet.dr, 40 MG PO DAILY Simvastatin (Simvastatin) 20 Mg Tablet, 20 MG PO QHS, (Reported) Spironolactone (Spironolactone) 25 Mg Tablet, 12.5 MG PO DAILY, (Reported) Torsemide (Torsemide) 5 Mg Tablet, 20 MG PO DAILY Scheduled PRN Acetaminophen (Acetaminophen) 500 Mg Tablet, 1,000 MG PO TIDP PRN for PAIN Ondansetron HCl (Ondansetron HCl) 4 Mg Tablet, 4 MG PO Q4HP PRN for NAUSEA OR VOMITING Simethicone (Mi-Acid) 80 Mg Tab.chew, 80 MG PO Q6HP PRN for GAS PAIN Allergies Coded Allergies: codeine (Verified Adverse Reaction, Mild, CONFUSION, 08/06/20) SHEFALI GOYAL MD Aug 16, 2020 23:16
== END 2020-08-15 14:15 | disposition home health service (06) | DRG 418 ==
LOC: M MS5PR 18:05
PROVIDERS: ADMIT Internal Medicine; ATTEND Internal Medicine Nephrology
PROC: 0F7D8DZ Dilation of Pancreatic Duct with Intraluminal Device, Via Natural or Artificial Opening Endoscopic (ICD-10-PCS; 2020-08-08)
PROC: 8E0W4CZ Robotic Assisted Procedure of Trunk Region, Percutaneous Endoscopic Approach (ICD-10-PCS; 2020-08-11)
PROC: 0FT44ZZ Resection of Gallbladder, Percutaneous Endoscopic Approach (ICD-10-PCS; principal; 2020-08-11 08:30)
DX: K80.42 Calculus of bile duct with acute cholecystitis without obstruction (principal); N17.9 Acute kidney failure, unspecified; R17 Unspecified jaundice; E78.5 Hyperlipidemia, unspecified; N18.30 Chronic kidney disease, stage 3 unspecified; E03.9 Hypothyroidism, unspecified; K57.30 Diverticulosis of large intestine without perforation or abscess without bleeding; M10.9 Gout, unspecified; I12.9 Hypertensive chronic kidney disease with stage 1 through stage 4 chronic kidney disease, or unspecified chronic kidney disease; Z95.2 Presence of prosthetic heart valve; I08.0 Rheumatic disorders of both mitral and aortic valves; E11.40 Type 2 diabetes mellitus with diabetic neuropathy, unspecified; E11.319 Type 2 diabetes mellitus with unspecified diabetic retinopathy without macular edema; K76.0 Fatty (change of) liver, not elsewhere classified; D64.9 Anemia, unspecified; E66.9 Obesity, unspecified; Z96.642 Presence of left artificial hip joint; Z68.34 Body mass index [BMI] 34.0-34.9, adult; Z79.82 Long term (current) use of aspirin; Z79.899 Other long term (current) drug therapy; Z88.5 Allergy status to narcotic agent; Z87.891 Personal history of nicotine dependence; E11.21 Type 2 diabetes mellitus with diabetic nephropathy

== ENCOUNTER → 2020-08-23 | Outpatient (CLI) | payer MEDICARE ==
[~2020-08-23] MED LIST: ACET-683 PO; ALLO100T PO; AMLO1TAB24 PO; ASPI81CH10 PO; CARV25TA PO; GLIM4TAB5 PO; LEVO150T7 PO; LEVO750T13 PO; LOSA100T50 PO; METF-838 PO; MI-A80CH PO; ONDA-83 PO; PANT40TA29 PO; SIMV20TA22 PO; SPIR-10 PO; TORS5TAB2 PO
--- NOTE | 2020-08-23 13:17 | REP ---
INDICATION: ABD PAIN. COMPARISON: Comparison MRCP examination August 07, 2020.. Patient is post cholecystectomy 11 August 2020. Rule out bile leak. TECHNIQUE/RADIOTRACER AND DOSE: 6.6 mCi of Technetium-99m mebrofenin was injected and sequential anterior images are acquired. FINDINGS: The initial hepatocellular parenchymal uptake phase is normal and homogeneous. Intra- and extra-hepatic bile ducts are labeled by the 10-minute image.. There is a prominent costal margin intent take a bowman in the lateral aspect of the liver which corresponds with coronal MRCP images. No focal liver lesion is seen. There is washout from the liver parenchyma into the small bowel. There is some tracer in the stomach but there is no scintigraphic evidence to suggest bile leak. IMPRESSION: Normal hepatobiliary scan post cholecystectomy. No evidence of bile leak. <Electronically signed by Sohail Smith > 08/23/20 [id number]
== END ==
LOC: M RAD 11:38
PROVIDERS: ATTEND Surgery
DX: K80.42 Calculus of bile duct with acute cholecystitis without obstruction (principal); K82.A1 Gangrene of gallbladder in cholecystitis; Z90.49 Acquired absence of other specified parts of digestive tract
CPT/HCPCS: 78226; A9537

== ENCOUNTER → 2020-09-13 | Outpatient (REF) | payer MEDICARE ==
[2020-09-13 18:47] LABS: ALKALINE PHOSPHATASE BF < 10 U/L (NOT ESTABLISHED); AST(SGOT), BODY FLUID 210 U/L (NOT ESTABLISHED); SOURCE, BODY FLUID AST OTHER
[2020-09-13 19:45] LABS: BILIRUBIN,TOTAL BF 1.6 MG/DL (NOT ESTABLISHED); SOURCE, BODY FLUID TOT BILIRU OTHER
== END ==
LOC: M LAB REF 18:26
PROVIDERS: ATTEND Surgery
DX: K80.80 Other cholelithiasis without obstruction (principal)

== ENCOUNTER → 2020-09-13 | Outpatient (CLI) | payer MEDICARE ==
[2020-09-13 12:24] LABS: ALBUMIN 3.1 GM/DL (3.2-5.2); BILIRUBIN,DIRECT 0.3 MG/DL (0.0-0.2); BILIRUBIN,TOTAL 0.5 MG/DL (0.2-1.0); TOTAL PROTEIN 7.2 GM/DL (6.4-8.2)
== END ==
LOC: M LAB 11:31
PROVIDERS: ATTEND Surgery
DX: D37.6 Neoplasm of uncertain behavior of liver, gallbladder and bile ducts (principal)

== ENCOUNTER → 2020-09-29 | Outpatient (CLI) | payer MEDICARE ==
[~2020-09-29] MED LIST changes: +FERR325T3 PO; +MAGN400T3 PO; +MULT-40 PO; +NITR0.4S14 SL; +VITA250T4 PO
== END ==
LOC: M LABSMTC 09:44
PROVIDERS: ATTEND Anesthesiology
DX: Z01.812 Encounter for preprocedural laboratory examination (principal); Z11.52 Encounter for screening for COVID-19

== ENCOUNTER → 2020-11-30 | Outpatient (CLI) | payer MEDICARE ==
[~2020-11-30] MED LIST changes: +CARV12.5 PO
== END ==
LOC: M LABSMTC 11:17
PROVIDERS: ATTEND Anesthesiology
DX: Z01.818 Encounter for other preprocedural examination (principal); Z11.52 Encounter for screening for COVID-19

== ENCOUNTER 2020-12-05 13:19 | Day surgery (SDC) | payer MEDICARE ==
[~2020-12-05] VITALS: Ht 152.4 cm; Wt 70.7 kg
[2020-12-05] MEDS ORDERED: ISOVUE-300 61% 50ML VIAL As Ordered ONE (14:47)
[2020-12-05] MEDS ORDERED: propofoL 200 MG/20 ML VIAL As Ordered ONE (15:34)
[2020-12-05] MEDS ORDERED: ROCURONIUM BROMIDE 50 MG/5 ML VIAL As Ordered ONE (15:34)
[2020-12-05] MEDS ORDERED: SUGAMMADEX SODIUM 500 MG/5 ML VIAL (BRIDION) As Ordered ONE (15:34)
[2020-12-05] MEDS ORDERED: ONDANSETRON 4MG/2ML VIAL As Ordered ONE (15:34)
[2020-12-05] MEDS ORDERED: LIDOCAINE 2% INJ 100 MG/5 ML SYRINGE As Ordered ONE (15:34)
[2020-12-05] MEDS ORDERED: METOCLOPRAMIDE INJ 10MG/2ML VIAL (J2765 PER 1) As Ordered ONE (15:34)
[2020-12-05] MEDS ORDERED: fentaNYL 100 MCG/2 ML INJECTION (J3010) As Ordered ONE (15:34)
--- NOTE | 2020-12-05 17:22 | ROOR ---
Patient Name: Stephanie Booker Procedure Date: 12/05/2020 2:35 PM Date of : 1935 Age: 85 Room: [facility] Gender: Female Note Status: Finalized Procedure: ERCP Indications: Treatment of bile leak Providers: Lamonte Cowan MD Referring MD: CONY HUGHES DO Requesting Provider: Medicines: General Anesthesia Complications: No immediate complications. Procedure: Pre-Anesthesia Assessment: - The heart rate, respiratory rate, oxygen saturations, blood pressure, adequacy of pulmonary ventilation, and response to care were monitored throughout the procedure. The Duodenoscope was introduced through the mouth, and advanced to the duodenum and used to inject contrast into the bile duct. The ERCP was accomplished without difficulty. The patient tolerated the procedure well. Findings: A installation helper film of the abdomen was obtained. Surgical clips, consistent with a previous cholecystectomy, were seen in the area of the right upper quadrant of the abdomen. The esophagus was successfully intubated under direct vision. The scope was advanced to a normal major papilla in the descending duodenum without detailed examination of the pharynx, larynx and associated structures, and upper GI tract. The upper GI tract was grossly normal. A straight Roadrunner wire was passed into the biliary tree. The short-nosed traction sphincterotome was passed over the guidewire and the bile duct was then deeply cannulated. Contrast was injected. I personally interpreted the bile duct images. Ductal flow of contrast was adequate. Image quality was adequate. The lower third of the main bile duct contained a mild stenosis or smooth taper to a small caliber for the last 2 cm of the bile duct/ampulla. This is of dubious significance, and may be artefactual/related to the scope position/indentation from scope shaft. It appears benign. Cells for cytology were obtained by brushing in the lower third of the main bile duct. To discover objects, the biliary tree was swept with a 12 mm balloon starting at the bifurcation. Nothing was found. One 10 mm by 4 cm covered metal stent with no external flaps and no internal flaps was placed into the common bile duct. Bile flowed through the stent. The stent was in good position. Impression: - The distal bile duct tapers smoothly to small caliber in the lower third of the main bile duct. The taper/stenosis is mild, non-obstructive and appears benign appearing. - Cells for cytology obtained in the lower third of the main duct. - The biliary tree was swept and nothing was found. - One covered metal stent was placed into the common bile duct. Recommendation: - Observe patient's clinical course. - Return to my office in about 3 months. - Will tentatively plan for stent removal at UGI endoscopy in 4-6 months. - (monitor biloma by US for resolution over the next 4 months) Procedure Code(s): --- Professional --- 88597, Endoscopic retrograde cholangiopancreatography (ERCP); with placement of endoscopic stent into biliary or pancreatic duct, including pre- and post-dilation and guide wire passage, when performed, including sphincterotomy, when performed, each stent Diagnosis Code(s): --- Professional --- K83.8, Other specified diseases of biliary tract K83.1, Obstruction of bile duct CPT copyright 2019 [employer]. All rights reserved. The codes documented in this report are preliminary and upon industrial electrical technician review may be revised to meet current compliance requirements. Lamonte Cowan MD Lamonte Cowan MD 12/05/2020 5:22:17 PM Electronically signed by Lamonte Cowan MD Number of Addenda: 0 Note Initiated On: 12/05/2020 2:35 PM Estimated Blood Loss: Estimated blood loss: none.
[2020-12-05] MEDS ORDERED: oxyCODONE 5MG TAB PO PRN (17:40)
[2020-12-05] MEDS ORDERED: HYDROMORPHONE HCL 0.5 MG/ 0.5 ML SYRINGE (J1170 PER 1) IV PRN (17:40)
[2020-12-05] MEDS ORDERED: ONDANSETRON 4MG/2ML VIAL IV PRN (17:40)
[2020-12-05] MEDS ORDERED: fentaNYL 100 MCG/2 ML INJECTION (J3010) IV PRN (17:40)
--- NOTE | 2020-12-05 17:59 | REP ---
INDICATION: BILE LEAK. COMPARISON: None. TECHNIQUE: Forty fluoroscopic spot views were obtained. Fluoroscopy time 5 minutes 45 seconds provided. FINDINGS: Varying degrees of opacification of the common bile duct is identified. There are no focal filling defects. IMPRESSION: As above <Electronically signed by Jaciel Lo > 12/05/20 [id number]
[2020-12-05 19:01] VITALS: BP 169/54
== END 2020-12-05 19:01 | disposition home or self-care (01) ==
LOC: M SDC 13:19
PROVIDERS: ATTEND Internal Medicine Gastroenterology
DX: K83.1 Obstruction of bile duct (principal); K83.8 Other specified diseases of biliary tract; I10 Essential (primary) hypertension; E78.5 Hyperlipidemia, unspecified; E05.90 Thyrotoxicosis, unspecified without thyrotoxic crisis or storm; E03.9 Hypothyroidism, unspecified; I25.2 Old myocardial infarction; Z98.61 Coronary angioplasty status; E11.9 Type 2 diabetes mellitus without complications; Z79.84 Long term (current) use of oral hypoglycemic drugs; Z79.82 Long term (current) use of aspirin; Z79.899 Other long term (current) drug therapy; M10.9 Gout, unspecified
CPT/HCPCS: 43274; 74330; 88104; C1874; J2405; J2765; J3010; Q9967

== ENCOUNTER → 2020-12-25 | Outpatient (REF) | payer MEDICARE ==
[2020-12-25 11:24] LABS: BASO % 0.3 % (0.0-1.0); EOS # 0.2 10^3/uL (0.0-0.5); EOS % 2.9 % (0.0-3.0); LYMPH % 14.4 % (24.0-44.0); MEAN CORPUSCULAR HEMOGLOBIN 28.8 pg (27.0-33.0); MEAN CORPUSCULAR HGB CONC 31.3 g/dl (32.0-36.5); MEAN CORPUSCULAR VOLUME 92.2 fl (80.0-96.0); MONO # 0.5 10^3/uL (0.0-0.8); MONO % 7.4 % (2.0-8.0); NEUTROPHILS # 5.2 10^3/uL (1.5-8.5); NEUTROPHILS % 74.6 % (36.0-66.0); PLATELET COUNT, AUTOMATED 169 10^3/uL (150-450); RED BLOOD COUNT 3.47 10^6/uL (4.00-5.40); WHITE BLOOD COUNT 6.9 10^3/uL (4.0-10.0)
[2020-12-25 11:42] LABS: HEMOGLOBIN A1c 7.2 %
[2020-12-25 11:50] LABS: BILIRUBIN,TOTAL 0.3 MG/DL (0.2-1.0); CALCIUM LEVEL 8.4 MG/DL (8.8-10.2); CHOLESTEROL RISK RATIO 2.852 (<5); CREATININE FOR GFR 1.4 MG/DL (0.55-1.30); GLOMERULAR FILTRATION RATE 38.2 (>32); POTASSIUM SERUM 4.8 MEQ/L (3.5-5.1); THYROID STIMULATING HORMONE 1.21 uIU/ML (0.358-3.740)
== END ==
LOC: M SFHCCLAY 08:52
PROVIDERS: ATTEND Family Medicine
DX: E03.9 Hypothyroidism, unspecified (principal); E78.5 Hyperlipidemia, unspecified; D50.9 Iron deficiency anemia, unspecified; I10 Essential (primary) hypertension; E11.29 Type 2 diabetes mellitus with other diabetic kidney complication; K85.10 Biliary acute pancreatitis without necrosis or infection
CPT/HCPCS: 80053; 80061; 82150; 83036; 83540; 83690; 84443; 85025; G0463

== ENCOUNTER → 2021-04-03 | Outpatient (CLI) | payer MEDICARE ==
[~2021-04-03] MED LIST changes: -MAGN400T3 PO; +MAGN400T33 PO
== END ==
LOC: M LABSMTC 09:23
PROVIDERS: ATTEND Anesthesiology
DX: Z01.812 Encounter for preprocedural laboratory examination (principal); Z20.822 Contact with and (suspected) exposure to COVID-19

== ENCOUNTER 2021-04-08 06:56 | Day surgery (SDC) | payer MEDICARE ==
[~2021-04-08] VITALS: Ht 152.4 cm; Wt 71.7 kg
[~2021-04-08 06:56] MED LIST changes: +LOSA100T45 PO; -LOSA100T50 PO; +NS 1,000 ML IV ONE
[2021-04-08] MEDS ORDERED: propofoL 500 MG/50 ML VIAL As Ordered ONE (07:26)
[2021-04-08] MEDS ORDERED: fentaNYL 100 MCG/2 ML INJECTION As Ordered ONE (07:26)
[2021-04-08] MEDS ORDERED: LIDOCAINE 2% 100MG/5ML SDV (FOR ANES.) As Ordered ONE (08:03)
[2021-04-08 08:54] VITALS: BP 154/72
== END 2021-04-08 08:56 | disposition home or self-care (01) ==
LOC: M OPP 06:56
PROVIDERS: ATTEND Internal Medicine Gastroenterology
DX: K31.89 Other diseases of stomach and duodenum (principal); Z46.89 Encounter for fitting and adjustment of other specified devices; Z79.82 Long term (current) use of aspirin; Z79.84 Long term (current) use of oral hypoglycemic drugs; Z79.899 Other long term (current) drug therapy; Z88.5 Allergy status to narcotic agent; Z87.891 Personal history of nicotine dependence

== ENCOUNTER → 2021-06-25 | Outpatient (REF) | payer MEDICARE ==
[~2021-06-25] MED LIST changes: -NS 1,000 ML IV ONE
[2021-06-26 11:49] LABS: BASO % 0.5 % (0.0-1.0); EOS # 0.6 10^3/uL (0.0-0.5); EOS % 7.8 % (0.0-3.0); HEMATOCRIT 32.1 % (36.0-47.0); HEMOGLOBIN 10.1 g/dl (12.0-15.5); LYMPH # 1.2 10^3/uL (1.5-5.0); LYMPH % 16.3 % (24.0-44.0); MEAN CORPUSCULAR HEMOGLOBIN 28.8 pg (27.0-33.0); MEAN CORPUSCULAR HGB CONC 31.5 g/dl (32.0-36.5); MEAN CORPUSCULAR VOLUME 91.5 fl (80.0-96.0); MONO # 0.8 10^3/uL (0.0-0.8); MONO % 10.7 % (2.0-8.0); NEUTROPHILS # 4.8 10^3/uL (1.5-8.5); NEUTROPHILS % 64.2 % (36.0-66.0); PLATELET COUNT, AUTOMATED 198 10^3/uL (150-450); RED BLOOD COUNT 3.51 10^6/uL (4.00-5.40); WHITE BLOOD COUNT 7.5 10^3/uL (4.0-10.0)
[2021-06-26 12:27] LABS: ALBUMIN 3.1 GM/DL (3.2-5.2); BILIRUBIN,TOTAL 0.2 MG/DL (0.2-1.0); CALCIUM LEVEL 9.4 MG/DL (8.8-10.2); CHOLESTEROL RISK RATIO 2.763 (<5); CREATININE FOR GFR 1.56 MG/DL (0.55-1.30); GLOMERULAR FILTRATION RATE 33.7 (>32); THYROID STIMULATING HORMONE 1.91 uIU/ML (0.358-3.740); TOTAL PROTEIN 7.6 GM/DL (6.4-8.2); URIC ACID 6.8 MG/DL (2.6-6.0)
[2021-06-26 12:47] LABS: HEMOGLOBIN A1c 7.5 %
== END ==
LOC: M SFHCCLAY 14:37
PROVIDERS: ATTEND Family Medicine
DX: M25.562 Pain in left knee (principal); D50.9 Iron deficiency anemia, unspecified; E78.5 Hyperlipidemia, unspecified; E03.9 Hypothyroidism, unspecified; E11.3293 Type 2 diabetes mellitus with mild nonproliferative diabetic retinopathy without macular edema, bilateral

== ENCOUNTER → 2021-09-05 | Outpatient (CLI) | payer MEDICARE ==
[~2021-09-05] MED LIST changes: +PROHANCE 279.3MG/ML 5ML VIAL As Ordered ONE
== END ==
LOC: M RAD 12:55
PROVIDERS: ATTEND Internal Medicine Gastroenterology
DX: K86.2 Cyst of pancreas (principal); K83.8 Other specified diseases of biliary tract; D37.6 Neoplasm of uncertain behavior of liver, gallbladder and bile ducts; Z90.49 Acquired absence of other specified parts of digestive tract
CPT/HCPCS: 74183; A9576

== ENCOUNTER → 2021-12-30 | Outpatient (REF) | payer MEDICARE ==
[~2021-12-30] MED LIST changes: +LEVO1TAB40 PO; -LEVO750T13 PO; -PROHANCE 279.3MG/ML 5ML VIAL As Ordered ONE
== END ==
LOC: M SFHCCLAY 14:07
PROVIDERS: ATTEND Family Medicine
DX: E11.29 Type 2 diabetes mellitus with other diabetic kidney complication (principal); E03.9 Hypothyroidism, unspecified

== ENCOUNTER → 2022-03-17 | Outpatient (REF) | payer MEDICARE ==
[2022-03-17 18:23] LABS: BASO % 0.3 % (0.0-1.0); EOS # 0.4 10^3/uL (0.0-0.5); EOS % 5.1 % (0.0-3.0); HEMATOCRIT 31.6 % (36.0-47.0); HEMOGLOBIN 9.9 g/dl (12.0-15.5); LYMPH # 1.4 10^3/uL (1.5-5.0); LYMPH % 20.3 % (24.0-44.0); MEAN CORPUSCULAR HEMOGLOBIN 29.1 pg (27.0-33.0); MEAN CORPUSCULAR HGB CONC 31.3 g/dl (32.0-36.5); MEAN CORPUSCULAR VOLUME 92.9 fl (80.0-96.0); MONO # 0.6 10^3/uL (0.0-0.8); MONO % 9.3 % (2.0-8.0); NEUTROPHILS # 4.4 10^3/uL (1.5-8.5); NEUTROPHILS % 64.7 % (36.0-66.0); PLATELET COUNT, AUTOMATED 187 10^3/uL (150-450); WHITE BLOOD COUNT 6.8 10^3/uL (4.0-10.0)
[2022-03-17 20:18] LABS: ALBUMIN 3.3 GM/DL (3.2-5.2); BILIRUBIN,TOTAL 0.4 MG/DL (0.2-1.0); CALCIUM LEVEL 9.1 MG/DL (8.8-10.2); CREATININE FOR GFR 1.56 MG/DL (0.55-1.30); GLOMERULAR FILTRATION RATE 33.7 (>32); POTASSIUM SERUM 4.9 MEQ/L (3.5-5.1); TOTAL PROTEIN 7.7 GM/DL (6.4-8.2)
[2022-03-17 22:06] LABS: HEMOGLOBIN A1c 7.5 %
== END ==
LOC: M SFHCCLAY 14:03
PROVIDERS: ATTEND Family Medicine
DX: E11.29 Type 2 diabetes mellitus with other diabetic kidney complication (principal); D50.9 Iron deficiency anemia, unspecified

== ENCOUNTER → 2022-09-11 | Outpatient (REF) | payer MEDICARE ==
[~2022-09-11] MED LIST changes: -LOSA100T45 PO; +LOSA100T46 PO
[2022-09-11 18:09] LABS: HEMATOCRIT 32.2 % (36.0-47.0); MEAN CORPUSCULAR HEMOGLOBIN 29.2 pg (27.0-33.0); MEAN CORPUSCULAR HGB CONC 31.1 g/dl (32.0-36.5); MEAN CORPUSCULAR VOLUME 93.9 fl (80.0-96.0); PLATELET COUNT, AUTOMATED 158 10^3/uL (150-450); RED BLOOD COUNT 3.43 10^6/uL (4.00-5.40)
[2022-09-11 18:34] LABS: ALBUMIN 3.1 G/DL (3.2-5.2); BILIRUBIN,TOTAL 0.3 MG/DL (0.3-1.2); CALCIUM LEVEL 8.7 MG/DL (8.3-10.6); CHOLESTEROL RISK RATIO 2.77 (<5); CREATININE FOR GFR 1.74 MG/DL (0.55-1.30); GLOMERULAR FILTRATION RATE 29.7 (>32); HDL CHOLESTEROL 32.4 MG/DL (>40); LDL CHOLESTEROL 18.4 MG/DL (<100); NON-HDL-C 57.6 MG/DL; POTASSIUM SERUM 5.2 MMOL/L (3.5-5.1); TOTAL PROTEIN 6.6 G/DL (5.7-8.2)
[2022-09-11 18:36] LABS: THYROID STIMULATING HORMONE 3.026 uIU/ML (0.55-4.78)
[2022-09-11 18:53] LABS: HEMOGLOBIN A1c 8.1 % (4.0-6.0)
== END ==
LOC: M SFHCCLAY 11:42
PROVIDERS: ATTEND Family Medicine
DX: E11.29 Type 2 diabetes mellitus with other diabetic kidney complication (principal); E03.9 Hypothyroidism, unspecified; E78.5 Hyperlipidemia, unspecified; D50.9 Iron deficiency anemia, unspecified

== ENCOUNTER → 2022-12-12 | Outpatient (REF) | payer MEDICARE ==
[2022-12-12 17:33] LABS: HEMATOCRIT 30.8 % (36.0-47.0); HEMOGLOBIN 9.6 g/dl (12.0-15.5); MEAN CORPUSCULAR HEMOGLOBIN 28.9 pg (27.0-33.0); MEAN CORPUSCULAR HGB CONC 31.2 g/dl (32.0-36.5); MEAN CORPUSCULAR VOLUME 92.8 fl (80.0-96.0); PLATELET COUNT, AUTOMATED 174 10^3/uL (150-450); RED BLOOD COUNT 3.32 10^6/uL (4.00-5.40)
[2022-12-12 17:56] LABS: ALBUMIN 3.1 G/DL (3.2-5.2); BILIRUBIN,TOTAL 0.3 MG/DL (0.3-1.2); CALCIUM LEVEL 8.6 MG/DL (8.3-10.6); CREATININE FOR GFR 1.67 MG/DL (0.55-1.30); POTASSIUM SERUM 5.2 MMOL/L (3.5-5.1); TOTAL PROTEIN 6.8 G/DL (5.7-8.2)
[2022-12-12 17:57] LABS: THYROID STIMULATING HORMONE 4.084 uIU/ML (0.55-4.78)
[2022-12-12 18:44] LABS: HEMOGLOBIN A1c 7.3 % (4.0-6.0)
== END ==
LOC: M SFHCCLAY 10:50
PROVIDERS: ATTEND Family Medicine
DX: D50.9 Iron deficiency anemia, unspecified (principal); E11.29 Type 2 diabetes mellitus with other diabetic kidney complication; E03.9 Hypothyroidism, unspecified

== ENCOUNTER → 2023-06-08 | Outpatient (REF) | payer MEDICARE ==
[2023-06-08 18:29] LABS: HEMATOCRIT 29.9 % (36.0-47.0); HEMOGLOBIN 9.4 g/dl (12.0-15.5); MEAN CORPUSCULAR HEMOGLOBIN 29.6 pg (27.0-33.0); MEAN CORPUSCULAR HGB CONC 31.4 g/dl (32.0-36.5); PLATELET COUNT, AUTOMATED 152 10^3/uL (150-450); RED BLOOD COUNT 3.18 10^6/uL (4.00-5.40); WHITE BLOOD COUNT 6.4 10^3/uL (4.0-10.0)
[2023-06-08 18:57] LABS: ALBUMIN 2.8 G/DL (3.2-5.2); BILIRUBIN,TOTAL 0.3 MG/DL (0.3-1.2); CALCIUM LEVEL 8.4 MG/DL (8.3-10.6); CREATININE FOR GFR 1.61 MG/DL (0.55-1.30); FREE T4 1.22 NG/DL (0.89-1.76); GLOMERULAR FILTRATION RATE 32.4 (>32); POTASSIUM SERUM 4.2 MMOL/L (3.5-5.1); TOTAL PROTEIN 6.6 G/DL (5.7-8.2)
[2023-06-08 18:58] LABS: THYROID STIMULATING HORMONE 2.563 uIU/ML (0.55-4.78)
[2023-06-08 19:04] LABS: HEMOGLOBIN A1c 7.2 % (4.0-6.0)
== END ==
LOC: M SFHCCLAY 10:55
PROVIDERS: ATTEND Family Medicine
DX: E11.29 Type 2 diabetes mellitus with other diabetic kidney complication (principal); D50.9 Iron deficiency anemia, unspecified; E03.9 Hypothyroidism, unspecified

== ENCOUNTER → 2023-10-09 | Outpatient (REF) | payer MEDICARE ==
[~2023-10-09] MED LIST changes: +VITA250T27 PO; -VITA250T4 PO
[2023-10-09 18:13] LABS: HEMATOCRIT 31.6 % (36.0-47.0); HEMOGLOBIN 9.8 g/dl (12.0-15.5); MEAN CORPUSCULAR HEMOGLOBIN 28.2 pg (27.0-33.0); MEAN CORPUSCULAR VOLUME 90.8 fl (80.0-96.0); PLATELET COUNT, AUTOMATED 177 10^3/uL (150-450); RED BLOOD COUNT 3.48 10^6/uL (4.00-5.40)
[2023-10-09 18:26] LABS: HEMOGLOBIN A1c 7.6 % (4.0-6.0)
[2023-10-09 18:44] LABS: ALBUMIN 2.6 G/DL (3.2-5.2); BILIRUBIN,TOTAL 0.2 MG/DL (0.3-1.2); CHOLESTEROL RISK RATIO 3.89 (<5); CREATININE FOR GFR 1.78 MG/DL (0.55-1.30); GLOMERULAR FILTRATION RATE 28.8 (>32); HDL CHOLESTEROL 32.1 MG/DL (>40); LDL CHOLESTEROL 47.3 MG/DL (<100); NON-HDL-C 92.9 MG/DL; POTASSIUM SERUM 4.9 MMOL/L (3.5-5.1); THYROID STIMULATING HORMONE 4.044 uIU/ML (0.55-4.78); TOTAL PROTEIN 6.5 G/DL (5.7-8.2)
== END ==
LOC: M SFHCCLAY 11:16
PROVIDERS: ATTEND Family Medicine
DX: I10 Essential (primary) hypertension (principal); E03.9 Hypothyroidism, unspecified; E78.5 Hyperlipidemia, unspecified; D50.9 Iron deficiency anemia, unspecified; E11.29 Type 2 diabetes mellitus with other diabetic kidney complication

== ENCOUNTER → 2024-02-08 | Outpatient (REF) | payer MEDICARE ==
[2024-02-08 18:38] LABS: HEMATOCRIT 32.1 % (36.0-47.0); HEMOGLOBIN 9.9 g/dl (12.0-15.5); MEAN CORPUSCULAR HEMOGLOBIN 28.7 pg (27.0-33.0); MEAN CORPUSCULAR HGB CONC 30.8 g/dl (32.0-36.5); PLATELET COUNT, AUTOMATED 168 10^3/uL (150-450); RED BLOOD COUNT 3.45 10^6/uL (4.00-5.40); WHITE BLOOD COUNT 6.2 10^3/uL (4.0-10.0)
[2024-02-08 18:54] LABS: ALBUMIN 2.8 G/DL (3.2-5.2); BILIRUBIN,TOTAL 0.3 MG/DL (0.3-1.2); CALCIUM LEVEL 8.9 MG/DL (8.3-10.6); CREATININE FOR GFR 1.87 MG/DL (0.55-1.30); GLOMERULAR FILTRATION RATE 27.2 (>32); POTASSIUM SERUM 4.5 MMOL/L (3.5-5.1)
[2024-02-08 18:56] LABS: THYROID STIMULATING HORMONE 5.819 uIU/ML (0.55-4.78)
[2024-02-08 19:10] LABS: HEMOGLOBIN A1c 6.6 % (4.0-6.0)
== END ==
LOC: M SFHCCLAY 11:50
PROVIDERS: ATTEND Family Medicine
DX: I10 Essential (primary) hypertension (principal); E03.9 Hypothyroidism, unspecified; D50.9 Iron deficiency anemia, unspecified; E11.29 Type 2 diabetes mellitus with other diabetic kidney complication

== ENCOUNTER → 2024-04-05 | Outpatient (REF) | payer MEDICARE | LOC: M SFHCCLAY 09:52 | PROVIDERS: ATTEND Family Medicine | DX: Z87.440 Personal history of urinary (tract) infections (principal) ==

== ENCOUNTER → 2024-04-28 | Outpatient (REF) | payer MEDICARE ==
[2024-04-28 18:12] LABS: BASO % 0.3 % (0.0-1.0); EOS # 0.2 10^3/uL (0.0-0.5); HEMATOCRIT 24.9 % (36.0-47.0); HEMOGLOBIN 7.8 g/dl (12.0-15.5); LYMPH # 0.6 10^3/uL (1.5-5.0); LYMPH % 9.9 % (24.0-44.0); MEAN CORPUSCULAR HEMOGLOBIN 28.7 pg (27.0-33.0); MEAN CORPUSCULAR HGB CONC 31.3 g/dl (32.0-36.5); MEAN CORPUSCULAR VOLUME 91.5 fl (80.0-96.0); MONO # 0.6 10^3/uL (0.0-0.8); MONO % 9.9 % (2.0-8.0); NEUTROPHILS # 4.4 10^3/uL (1.5-8.5); NEUTROPHILS % 76.6 % (36.0-66.0); PLATELET COUNT, AUTOMATED 167 10^3/uL (150-450); RED BLOOD COUNT 2.72 10^6/uL (4.00-5.40); WHITE BLOOD COUNT 5.7 10^3/uL (4.0-10.0)
[2024-04-28 19:07] LABS: ALBUMIN 2.4 G/DL (3.2-5.2); BILIRUBIN,TOTAL 0.3 MG/DL (0.3-1.2); CALCIUM LEVEL 8.5 MG/DL (8.3-10.6); CREATININE FOR GFR 2.79 MG/DL (0.55-1.30); GLOMERULAR FILTRATION RATE 17.1 (>32); MAGNESIUM LEVEL 2.2 MG/DL (1.8-2.4); POTASSIUM SERUM 6.6 MMOL/L (3.5-5.1); TOTAL PROTEIN 6.3 G/DL (5.7-8.2)
== END ==
LOC: M SFHCCAPE 11:59
PROVIDERS: ATTEND Physician Assistant Medical
DX: R53.1 Weakness (principal)

== ENCOUNTER → 2024-06-02 | Outpatient (REF) | payer MEDICARE ==
[2024-06-02 18:33] LABS: HEMATOCRIT 29.1 % (36.0-47.0); HEMOGLOBIN 9.2 g/dl (12.0-15.5); MEAN CORPUSCULAR HEMOGLOBIN 29.1 pg (27.0-33.0); MEAN CORPUSCULAR HGB CONC 31.6 g/dl (32.0-36.5); MEAN CORPUSCULAR VOLUME 92.1 fl (80.0-96.0); PLATELET COUNT, AUTOMATED 166 10^3/uL (150-450); RED BLOOD COUNT 3.16 10^6/uL (4.00-5.40)
[2024-06-02 18:38] LABS: ALBUMIN 2.6 G/DL (3.2-5.2); BILIRUBIN,TOTAL 0.3 MG/DL (0.3-1.2); CALCIUM LEVEL 8.8 MG/DL (8.3-10.6); CREATININE FOR GFR 2.2 MG/DL (0.55-1.30); GLOMERULAR FILTRATION RATE 22.5 (>32); POTASSIUM SERUM 4.3 MMOL/L (3.5-5.1); TOTAL PROTEIN 6.9 G/DL (5.7-8.2)
[2024-06-02 18:39] LABS: THYROID STIMULATING HORMONE 0.753 uIU/ML (0.55-4.78)
[2024-06-02 18:51] LABS: HEMOGLOBIN A1c 6.8 % (4.0-6.0)
== END ==
LOC: M SFHCCLAY 10:33
PROVIDERS: ATTEND Family Medicine
DX: I10 Essential (primary) hypertension (principal); E11.29 Type 2 diabetes mellitus with other diabetic kidney complication; E03.9 Hypothyroidism, unspecified; D50.9 Iron deficiency anemia, unspecified

== ENCOUNTER → 2025-01-20 | Outpatient (REF) | payer MEDICARE ==
[2025-01-20 18:08] LABS: PLATELET COUNT, AUTOMATED 151 10^3/uL (150-450)
[2025-01-20 18:10] LABS: ALT/SGPT 26.0 U/L (7.0-40); AST/SGOT 31.0 U/L (<34); CALCIUM LEVEL 8.8 MG/DL (8.3-10.6); CARBON DIOXIDE LEVEL 28.0 MMOL/L (20-31); CHLORIDE LEVEL 103.0 MMOL/L (98-107); CHOLESTEROL LEVEL 97.0 MG/DL (<200); CHOLESTEROL RISK RATIO 2.67 (<5); CREATININE FOR GFR 2.72 MG/DL (0.55-1.30); FREE T4 1.29 NG/DL (0.89-1.76); GLOMERULAR FILTRATION RATE 16.4 (>32); IRON (FE) 37.0 UG/DL (50-170); LDL CHOLESTEROL 37.1 MG/DL (<100); NON-HDL-C 60.7 MG/DL; POTASSIUM SERUM 4.5 MMOL/L (3.5-5.1); SODIUM LEVEL 141.0 MMOL/L (136-145); TRIGLYCERIDES LEVEL 118.0 MG/DL (<150)
[2025-01-20 18:31] LABS: ESTIMATED AVERAGE GLUCOSE 183.0 MG/DL (60-110)
== END ==
LOC: M SFHCCLAY 11:47
PROVIDERS: ATTEND Family Medicine
DX: I10 Essential (primary) hypertension (principal); D50.9 Iron deficiency anemia, unspecified; E03.9 Hypothyroidism, unspecified; E78.5 Hyperlipidemia, unspecified; E11.29 Type 2 diabetes mellitus with other diabetic kidney complication

== ENCOUNTER → 2025-02-06 | Outpatient (CLI) | payer MEDICARE | LOC: M PLAIMG 13:29 | PROVIDERS: ATTEND Registered Nurse | DX: I08.0 Rheumatic disorders of both mitral and aortic valves (principal) ==